=== PATIENT | female | born 1930 | race Caucasian/White ===

== ENCOUNTER → 2016-11-05 | Outpatient (CLI) | payer MEDICARE, BC ==
[~2016-11-05] MED LIST: ALPR0.5T3 PO; CARD120C4 PO; CARV12.52 PO; COUM5TAB PO; PROZ40CA PO
[2016-11-05 09:48] LABS: AUTOMATED NEUTROPHIL # 3.7 TH/MM3 (1.8-7.7); BASOPHIL % 0.7 % (0.0-2.0); EOSINOPHIL # 0.1 TH/MM3 (0-0.4); HEMATOCRIT 40.2 % (35.0-46.0); HEMO FLAGS DIFF FINAL; LYMPH % 14.5 % (9.0-44.0); LYMPHOCYTE # 0.7 TH/MM3 (1.0-4.8); MEAN CELL VOLUME 91.4 FL (80.0-100.0); MEAN CORPUSCULAR HEMOGLOBIN 31.3 PG (27.0-34.0); MEAN CORPUSCULAR HGB CONC 34.2 % (32.0-36.0); MONO % 10.5 % (0.0-8.0); NEUT % 72.3 % (16.0-70.0); PLATELET COUNT 161 TH/MM3 (150-450); RED BLOOD COUNT 4.39 MIL/MM3 (4.00-5.30); RED CELL DISTRIBUTION WIDTH 13.6 % (11.6-17.2); WHITE BLOOD COUNT 5.1 TH/MM3 (4.0-11.0)
[2016-11-05 09:56] LABS: BACTERIA, URINE RARE /hpf; BLOOD, URINE TRACE (NEG); GLUCOSE,URINE NEG (NEG); KETONE, URINE NEG (NEG); MUCUS URINE FEW /lpf (OCC); NITRITE,URINE NEG (NEG); PH, URINE 5.5 (5.0-8.5); SQUAMOUS EPITHELIAL CELL URINE 4 /hpf (0-5); URINE COLOR YELLOW (YELLW/STRAW)
[2016-11-05 10:23] LABS: ALKALINE PHOSPHATASE 74 U/L (45-117); ALT (GPT) 16 U/L (10-53); ANION GAP 8 MEQ/L (5-15); AST (GOT) 12 U/L (15-37); BICARBONATE 27.4 MEQ/L (21.0-32.0); BLOOD UREA NITROGEN 14 MG/DL (7-18); CHLORIDE 106 MEQ/L (98-107); GLOMERULAR FILTRATION RATE 63 ML/MIN (>89); GLUCOSE,FASTING 97 MG/DL (74-99); HDL CHOLESTEROL 59.8 MG/DL (40.0-60.0); LDL CHOLESTEROL 142 MG/DL (0-99); POTASSIUM 4.2 MEQ/L (3.5-5.1); SODIUM (NA) 141 MEQ/L (136-145); THYROXINE (T4) 10.8 MCG/DL (4.8-13.9); TOTAL BILIRUBIN ADULT 0.5 MG/DL (0.2-1.0)
== END ==
LOC: PLAB 07:41
PROVIDERS: ATTEND Internal Medicine Interventional Cardiology
DX: I25.10 Atherosclerotic heart disease of native coronary artery without angina pectoris (principal); I48.2 Chronic atrial fibrillation; R06.02 Shortness of breath; R00.2 Palpitations; R42 Dizziness and giddiness; E78.00 Pure hypercholesterolemia, unspecified; I12.9 Hypertensive chronic kidney disease with stage 1 through stage 4 chronic kidney disease, or unspecified chronic kidney disease; N18.3 Chronic kidney disease, stage 3 (moderate); E78.5 Hyperlipidemia, unspecified
CPT/HCPCS: 36415; 80053; 80061; 81001; 82306; 83970; 84436; 84443; 85025

== ENCOUNTER → 2017-01-24 | Outpatient (CLI) | payer MEDICARE, BC ==
[2017-01-24 13:27] LABS: BASOPHIL # 0.1 TH/MM3 (0-0.2); BASOPHIL % 1.2 % (0.0-2.0); EOSINOPHIL # 0.2 TH/MM3 (0-0.4); EOSINOPHIL % 4.6 % (0.0-4.0); HEMATOCRIT 44.4 % (35.0-46.0); HEMO FLAGS DIFF FINAL; LYMPH % 19.7 % (9.0-44.0); LYMPHOCYTE # 0.9 TH/MM3 (1.0-4.8); MEAN CELL VOLUME 93.8 FL (80.0-100.0); MEAN CORPUSCULAR HEMOGLOBIN 29.8 PG (27.0-34.0); MEAN CORPUSCULAR HGB CONC 31.8 % (32.0-36.0); MONO % 8.2 % (0.0-8.0); NEUT % 66.3 % (16.0-70.0); PLATELET COUNT 172 TH/MM3 (150-450); RED BLOOD COUNT 4.74 MIL/MM3 (4.00-5.30); RED CELL DISTRIBUTION WIDTH 13.3 % (11.6-17.2); WHITE BLOOD COUNT 4.6 TH/MM3 (4.0-11.0)
[2017-01-24 13:51] LABS: BACTERIA, URINE RARE /hpf; BLOOD, URINE NEG (NEG); GLUCOSE,URINE NEG (NEG); KETONE, URINE NEG (NEG); NITRITE,URINE NEG (NEG); PH, URINE 7.5 (5.0-8.5); SQUAMOUS EPITHELIAL CELL URINE <1 /hpf (0-5); URINE COLOR YELLOW (YELLW/STRAW)
[2017-01-24 13:53] LABS: ANION GAP 6 MEQ/L (5-15); AST (GOT) 19 U/L (15-37); BICARBONATE 29.3 MEQ/L (21.0-32.0); BLOOD UREA NITROGEN 12 MG/DL (7-18); CHLORIDE 106 MEQ/L (98-107); GLOMERULAR FILTRATION RATE 60 ML/MIN (>89); GLUCOSE,FASTING 101 MG/DL (74-99); POTASSIUM 4.5 MEQ/L (3.5-5.1); SODIUM (NA) 141 MEQ/L (136-145)
[2017-01-24 14:02] LABS: ALKALINE PHOSPHATASE 75 U/L (45-117); ALT (GPT) 17 U/L (10-53); FREE T4 1.13 NG/DL (0.76-1.46); HDL CHOLESTEROL 46.8 MG/DL (40.0-60.0); LDL CHOLESTEROL 149 MG/DL (0-99); TOTAL BILIRUBIN ADULT 0.5 MG/DL (0.2-1.0)
== END ==
LOC: PLAB 10:19
PROVIDERS: ATTEND Internal Medicine
DX: E78.5 Hyperlipidemia, unspecified (principal); N18.3 Chronic kidney disease, stage 3 (moderate)
CPT/HCPCS: 36415; 80053; 80061; 81001; 82306; 83970; 84439; 84443; 85025

== ENCOUNTER 2017-02-21 13:54 | Emergency (ER) | payer MEDICARE, BC ==
[~2017-02-21] VITALS: Ht 170.2 cm; Wt 75.9 kg
[2017-02-21 14:03] VITALS: BP 115/68; PULSE 82; RESP 16; TEMP 98.2; O2SAT 94
[2017-02-21] MEDS ORDERED: GABA400C5 PO (15:01)
[2017-02-21] MEDS ORDERED: XANA1TAB2 PO (15:01)
[2017-02-21] MEDS ORDERED: CHOL100025 CHEW (15:01)
[2017-02-21] MEDS ORDERED: WARF-23 PO (15:01)
[2017-02-21] MEDS ORDERED: CARV25TA PO (15:01)
[2017-02-21] MEDS ORDERED: FLUO20CA12 PO (15:01)
[2017-02-21] MEDS ORDERED: CART120C PO (15:01)
[2017-02-21] MEDS ORDERED: TRAM50TA PO (15:08)
--- NOTE | 2017-02-21 15:14 | PD ---
HPI Chief Complaint: Pain: Acute or Chronic Time Seen by Provider: 14:40 Travel History International Travel<30 days: No Contact w/Intl Traveler<30days: No Traveled to known affect area: No History of Present Illness HPI The patient was seen and examined in the presence of the nurse. This patient complains of left knee pain. She's had left knee pain for 2 full years. She follows with orthopedist. She was at the orthopedist a week ago she reports. She's had imaging. She says that she has a torn meniscus. She has tried some physical therapy. She says it doesn't help. She has no new or acute injury. Denies fever. She went to the orthopedist today because of her continued and annoying pain. Her orthopedist was not there so the office staff told her to come to the emergency department instead. Severity is moderate. No alleviating factors PFSH Past Medical History Hx Anticoagulant Therapy: Yes (coumadin) Arthritis: No Asthma: No Anxiety: Yes Depression: Yes Heart Rhythm Problems: Yes (A FIB) Cancer: No Cardiac Catheterization: Yes Cardiovascular Problems: No High Cholesterol: Yes Chemotherapy: No Chest Pain: No Congestive Heart Failure: No COPD: No Cerebrovascular Accident: Yes Coronary Artery Disease: Yes Diabetes: No Diminished Hearing: No Deep Vein Thrombosis: Yes Endocrine: No GERD: No Genitourinary: No Hepatitis: No Hiatal Hernia: No Hypertension: Yes Immune Disorder: No Kidney Stones: No Musculoskeletal: No Neurologic: No Psychiatric: No Reproductive: No Respiratory: No Migraines: Yes Radiation Therapy: No Renal Failure: No Seizures: No Sickle Cell Disease: No Sleep Apnea: No Thyroid Disease: Yes (NODULES ON THYROID) Ulcer: No Tetanus Vaccination: < 5 Years Influenza Vaccination: No Menopausal: Yes Past Surgical History Abdominal Surgery: No AICD: No Appendectomy: Yes Arteriovenous Shunt: No Cardiac Surgery: Yes (S TENTS IN CHEST AND ONE IN RT LEG , CAROTID STENT ) Coronary Stent: Yes Ear Surgery: No Endocrine Surgery: No Eye Surgery: Yes (CATARACT SURGERY) Genitourinary Surgery: No Gynecologic Surgery: Yes (REMOVERD CYCT FROM RT BREAST) Insulin Pump: No Joint Replacement: No Oral Surgery: No Pacemaker: Yes (STENTS) Thoracic Surgery: No Tonsillectomy: Yes Other Surgery: Yes (RT FEMORAL STENT) Social History Alcohol Use: No Tobacco Use: No Substance Use: No Allergies-Medications (Allergen,Severity, Reaction): Coded Allergies: Terramycin (Verified Allergy, Severe, SWELLING/HIVES, 02/21/17) Reported Meds & Prescriptions Reported Meds & Active Scripts Active Reported Warfarin 5 Mg Tab 5 Mg PO DAILY Vitamin D3 (Cholecalciferol) 1,000 Unit Chew 1,000 Units CHEW DAILY Cartia Xt (Diltiazem ER 24 HR) 120 Mg Caper 120 Mg PO DAILY Carvedilol 25 Mg Tab 25 Mg PO BID Fluoxetine (Fluoxetine HCl) 20 Mg Capsule 20 Mg PO BID Gabapentin 400 Mg Cap 400 Cap PO BID Xanax (Alprazolam) 1 Mg Tab 1 Mg PO Q8H PRN Review of Systems General / Constitutional: No: Fever HENT: No: Headaches Cardiovascular: No: Chest Pain or Discomfort Respiratory: No: Cough Gastrointestinal: No: Vomiting Genitourinary: No: Frequency Physical Exam Narrative GENERAL: Well-nourished, well-developed patient. SKIN: Focused skin assessment warm/dry. HEAD: Normocephalic. EYES: No scleral icterus. No injection or drainage. NECK: Supple, trachea midline. No JVD or lymphadenopathy. CARDIOVASCULAR: Irregularly irregular rhythm without murmurs, gallops, or rubs. RESPIRATORY: Breath sounds equal bilaterally. No accessory muscle use. GASTROINTESTINAL: Abdomen soft, non-tender, nondistended. MUSCULOSKELETAL: No cyanosis, or edema. No tenderness to the left knee. No obvious effusion or erythema or warmth. She has pain with flexion. BACK: Nontender without obvious deformity. No CVA tenderness. Data Data Last Documented VS Vital Signs Date Time Temp Pulse Resp B/P Pulse Ox O2 Delivery O2 Flow Rate FiO2 02/21/17 14:03 98.2 82 16 115/68 94 MDM Medical Decision Making Medical Screen Exam Complete: Yes Emergency Medical Condition: Yes Medical Record Reviewed: Yes Differential Diagnosis Meniscus injury, cartilage, soft tissue contusion, hemarthrosis Narrative Course I have reviewed the patient's electronic medical record. My clinical suspicion for hemarthrosis is very low. She does list Coumadin as a medication for chronic A. fib but she's had this chronic knee pain for 2 full years. I do not recommend reversal or arthrocentesis at this time I wrote her some tramadol to use as needed for pain relief. She is to contact her physician for follow-up She has a walker at home and I've advised her to use it Diagnosis Primary Impression: Chronic pain of left knee Additional Impression: Permanent atrial fibrillation Additional Instructions: The patient was warned about potential sedation for the medications they will receive on prescription. The patient was advised to follow up with their physician and return if they worsen. Med/Other Pt SpecificInfo: Prescription(s) given Scripts Tramadol 50 Mg Tab50 Mg PO Q6H PRN (PAIN) #20 TAB Ref 0 Prov:Marco Antonio Staley MD 02/21/17 Disposition: 01 DISCHARGE HOME Condition: Stable Marco Antonio Staley MD Feb 21, 2017 15:14
== END 2017-02-21 15:32 | disposition home or self-care (01) ==
LOC: PHEFT 13:54
DX: M25.562 Pain in left knee (principal); G89.29 Other chronic pain; I48.2 Chronic atrial fibrillation; I10 Essential (primary) hypertension; E07.9 Disorder of thyroid, unspecified; E78.00 Pure hypercholesterolemia, unspecified; Z79.01 Long term (current) use of anticoagulants; Z86.59 Personal history of other mental and behavioral disorders; Z86.79 Personal history of other diseases of the circulatory system; Z86.718 Personal history of other venous thrombosis and embolism; Z86.69 Personal history of other diseases of the nervous system and sense organs; Z87.39 Personal history of other diseases of the musculoskeletal system and connective tissue
CPT/HCPCS: 99283

== ENCOUNTER 2017-06-13 10:55 | Inpatient (IN) | payer MEDICARE, BC ==
[~2017-06-13] VITALS: Ht 170.2 cm; Wt 85.3 kg
[~2017-06-13 10:55] MED LIST changes: -ALPR0.5T3 PO; -CARD120C4 PO; +CART120C PO; -CARV12.52 PO; +CARV25TA PO; +CHOL100025 PO; -COUM5TAB PO; +FLUO20CA12 PO; +GABA400C5 PO; -PROZ40CA PO; +TRAM50TA PO; +WARF-23 PO; +XANA1TAB2 PO
[2017-06-13 11:20] VITALS: BP 140/75; PULSE 93; RESP 30; TEMP 98.7; O2SAT 90
[2017-06-13] MEDS ORDERED: SODIUM CHLORIDE 0.9% FLUSH 5 ML FLUSH IV FLUSH PRN (11:30)
[2017-06-13] MEDS ORDERED: SODIUM CHLORIDE 0.9% FLUSH 10 ML FLUSH IVF PRN (11:30)
[2017-06-13] MEDS ORDERED: DILTIAZEM HCL 25 MG/5 ML VIAL IV PUSH ONE (11:30)
[2017-06-13] MEDS ORDERED: WARF-20 PO (11:39)
[2017-06-13] MEDS ORDERED: GABA300C5 PO (11:39)
[2017-06-13 11:59] LABS: AUTOMATED NEUTROPHIL # 6.2 TH/MM3 (1.8-7.7); BASOPHIL % 0.3 % (0.0-2.0); HEMATOCRIT 40.9 % (35.0-46.0); HEMO FLAGS DIFF FINAL; LYMPH % 14.5 % (9.0-44.0); LYMPHOCYTE # 1.2 TH/MM3 (1.0-4.8); MEAN CELL VOLUME 96.9 FL (80.0-100.0); NEUT % 74.2 % (16.0-70.0); PLATELET COUNT 157 TH/MM3 (150-450); RED BLOOD COUNT 4.23 MIL/MM3 (4.00-5.30); RED CELL DISTRIBUTION WIDTH 13.2 % (11.6-17.2); WHITE BLOOD COUNT 8.3 TH/MM3 (4.0-11.0)
[2017-06-13 12:09] LABS: APTT (PATIENT) 26.1 SEC (24.3-30.1); PROTHROMBIN TIME - PATIENT 11.4 SEC (9.8-11.6)
[2017-06-13 12:16] VITALS: BP 152/70; PULSE 105; RESP 30; O2SAT 94
[2017-06-13] MEDS: DILTIAZEM INJ 125 MG in SODIUM CHLORIDE 0.9% INJ 100 ML IV PRN ×2 (12:18→23:00)
--- NOTE | 2017-06-13 12:22 | PD ---
HPI Chief Complaint: Respiratory Distress Time Seen by Provider: 11:29 Travel History International Travel<30 days: No Contact w/Intl Traveler<30days: No Traveled to known affect area: No History of Present Illness HPI Diagnoses in 86-year-old female with history of atrial fibrillation, COPD, CHF, hypertension, and presents here with complaints of palpitations and shortness of breath. The patient denies any chest pain, chest pressure. She reports the tightness across her chest with the palpitations. There is no productive cough. There is no reported fevers, chills. There is no reported chest pain other than the tightness with shortness of breath. The patient was noted to be in A. fib with RVR when the paramedics arrived. She was administered 20 mg of Cardizem. It brought her heart rate down into the 80s however when she arrived here was back up into the low 100s. PFSH Past Medical History Hx Anticoagulant Therapy: Yes (coumadin) Arthritis: No Asthma: No Anxiety: Yes Depression: Yes Heart Rhythm Problems: Yes (A FIB) Cancer: No Cardiac Catheterization: Yes Cardiovascular Problems: Yes (mi ) High Cholesterol: Yes Chemotherapy: No Chest Pain: No Congestive Heart Failure: No COPD: No Cerebrovascular Accident: Yes Coronary Artery Disease: Yes Diabetes: No Diminished Hearing: No Deep Vein Thrombosis: Yes Endocrine: No GERD: No Genitourinary: No Hepatitis: No Hiatal Hernia: No Hypertension: Yes Immune Disorder: No Kidney Stones: No Musculoskeletal: No Neurologic: No Psychiatric: No Reproductive: No Respiratory: Yes Migraines: Yes Radiation Therapy: No Renal Failure: No Seizures: No Sickle Cell Disease: No Sleep Apnea: No Thyroid Disease: Yes (NODULES ON THYROID) Ulcer: No Menopausal: Yes Past Surgical History Abdominal Surgery: No AICD: No Appendectomy: Yes Arteriovenous Shunt: No Cardiac Surgery: Yes (S TENTS IN CHEST AND ONE IN RT LEG , CAROTID STENT ) Coronary Stent: Yes Ear Surgery: No Endocrine Surgery: No Eye Surgery: Yes (CATARACT SURGERY) Genitourinary Surgery: No Gynecologic Surgery: Yes (REMOVERD CYCT FROM RT BREAST) Insulin Pump: No Joint Replacement: No Oral Surgery: No Pacemaker: Yes (STENTS) Thoracic Surgery: No Tonsillectomy: Yes Other Surgery: Yes (RT FEMORAL STENT) Social History Alcohol Use: No Tobacco Use: No Substance Use: No Allergies-Medications (Allergen,Severity, Reaction): Coded Allergies: oxytetracycline (Unverified Allergy, Severe, SWELLING/HIVES, 06/13/17) Reported Meds & Prescriptions Reported Meds & Active Scripts Active Reported Warfarin 4 Mg Tab 4 Mg PO EVERY OTHER DAY Take 1 tablet (4mg) every other day alternating with 5mg Gabapentin 300 Mg Cap 300 Mg PO BID Warfarin 5 Mg Tab 5 Mg PO EVERY OTHER DAY Take 1 tablet (5mg) every other day alternating with 4mg Vitamin D3 (Cholecalciferol) 1,000 Unit Chew 1,000 Units PO DAILY Cartia Xt (Diltiazem ER 24 HR) 120 Mg Caper 120 Mg PO DAILY Carvedilol 25 Mg Tab 25 Mg PO BID Fluoxetine (Fluoxetine HCl) 20 Mg Capsule 20 Mg PO BID Xanax (Alprazolam) 1 Mg Tab 1 Mg PO Q8H PRN Review of Systems Except as stated in HPI: all other systems reviewed are Neg General / Constitutional: No: Fever, Chills HENT: No: Headaches, Lightheadedness Cardiovascular: Positive: Chest Pain or Discomfort (shortness of breath), No: Palpitations Respiratory: Positive: Shortness of Breath, No: Cough Gastrointestinal: No: Nausea, Vomiting, Abdominal Pain Genitourinary: No: Frequency, Dysuria Musculoskeletal: Positive: Weakness (analyzed), No: Pain Neurologic: Positive: Weakness, No: Headache, Change in Mentation Physical Exam Narrative GENERAL: Well-nourished, well-developed patient in mild to moderate respiratory discomfort. SKIN: Focused skin assessment warm/dry. HEAD: Normocephalic/atraumatic. EYES: No scleral icterus. No injection or drainage. NECK: Supple, trachea midline. No JVD or lymphadenopathy. CARDIOVASCULAR: Irregularly irregular with a rate of 1:15. RESPIRATORY: Coarse breath sounds in the lower lung alegria bilaterally. No Rales. GASTROINTESTINAL: Abdomen soft, non-tender, nondistended. MUSCULOSKELETAL: No cyanosis, or edema. NEUROLOGICAL: Awake and alert. Cranial nerves II through XII intact. Motor grossly within normal limits. Five out of 5 muscle strength in all muscle groups. Normal speech. Data Data Last Documented VS Vital Signs Date Time Temp Pulse Resp B/P (MAP) Pulse Ox O2 Delivery O2 Flow Rate FiO2 06/13/17 14:08 94 176/77 06/13/17 12:16 30 94 Nasal Cannula 3.00 06/13/17 11:20 98.7 Orders Orders Ecg Monitoring (06/13/17 11:29) Blood Pressure (06/13/17 11:29) Iv Access Insert/Monitor (06/13/17 11:29) Oximetry (06/13/17 11:29) Vital Signs (06/13/17 11:29) Diltiazem Inj (Cardizem Inj) (06/13/17 11:30) Diltiazem Inj (Cardizem Inj) (06/13/17 11:30) Sodium Chloride 0.9% Flush (Ns Flush) (06/13/17 11:30) Electrocardiogram (06/13/17 11:29) Basic Metabolic Panel (Bmp) (06/13/17 11:29) Ckmb (Isoenzyme) Profile (06/13/17 11:29) Complete Blood Count With Diff (06/13/17 11:29) Magnesium (Mg) (06/13/17 11:29) Prothrombin Time / Inr (Pt) (06/13/17 11:29) Act Partial Throm Time (Ptt) (06/13/17 11:29) Troponin I (06/13/17 11:29) Chest, Single Ap (06/13/17 11:29) Oxygen Administration (06/13/17 11:29) Sodium Chloride 0.9% Flush (Ns Flush) (06/13/17 11:30) Furosemide Inj (Lasix Inj) (06/13/17 14:30) Labs Laboratory Tests Test 06/13/17 11:45 White Blood Count 8.3 TH/MM3 Red Blood Count 4.23 MIL/MM3 Hemoglobin 13.5 GM/DL Hematocrit 40.9 % Mean Corpuscular Volume 96.9 FL Mean Corpuscular Hemoglobin 32.0 PG Mean Corpuscular Hemoglobin Concent 33.0 % Red Cell Distribution Width 13.2 % Platelet Count 157 TH/MM3 Mean Platelet Volume 8.5 FL Neutrophils (%) (Auto) 74.2 % Lymphocytes (%) (Auto) 14.5 % Monocytes (%) (Auto) 11.0 % Eosinophils (%) (Auto) 0.0 % Basophils (%) (Auto) 0.3 % Neutrophils # (Auto) 6.2 TH/MM3 Lymphocytes # (Auto) 1.2 TH/MM3 Monocytes # (Auto) 0.9 TH/MM3 Eosinophils # (Auto) 0.0 TH/MM3 Basophils # (Auto) 0.0 TH/MM3 CBC Comment DIFF FINAL Differential Comment Prothrombin Time 11.4 SEC Prothromb Time International Ratio 1.0 RATIO Activated Partial Thromboplast Time 26.1 SEC Blood Urea Nitrogen 13 MG/DL Creatinine 0.86 MG/DL Random Glucose 116 MG/DL Calcium Level 8.6 MG/DL Magnesium Level 1.9 MG/DL Sodium Level 136 MEQ/L Potassium Level 4.1 MEQ/L Chloride Level 103 MEQ/L Carbon Dioxide Level 27.5 MEQ/L Anion Gap 6 MEQ/L Estimat Glomerular Filtration Rate 62 ML/MIN Total Creatine Kinase 51 U/L Troponin I 0.03 NG/ML MDM Medical Decision Making Medical Screen Exam Complete: Yes Emergency Medical Condition: Yes Differential Diagnosis CHF versus A. fib with RVR versus ACS Narrative Course 86-year-old lady with history of atrial fibrillation, and presents here with the complaint of shortness of breath and palpitations. When [facility] arrived, they found her to be in rapid A. fib and administered 20 mg of diltiazem. Initially her heart rate dropped into the 80s however increase back up into the low 100s. She is given another bolus of diltiazem and placed on a drip of 5 mg per hour. She also noted to be in mild congestive heart failure. STEMI given 20 mg of Lasix. There is a call out to the hospitalist for admission. Diagnosis Primary Impression: Atrial fibrillation with RVR Additional Impressions: Congestive heart failure Dyspnea Admitting Information Admitting Physician Requests: Admit Piotr Nguyễn MD Jun 13, 2017 12:22
[2017-06-13 12:25] LABS: BICARBONATE 27.5 MEQ/L (21.0-32.0); MAGNESIUM 1.9 MG/DL (1.5-2.5); POTASSIUM 4.1 MEQ/L (3.5-5.1)
--- NOTE | 2017-06-13 12:33 | RADRPT ---
EXAM DATE/TIME: 06/13/2017 11:58 [facility] COMPARISON: No previous studies available for comparison. INDICATIONS : Chest pain. Shortness of breath. MEDICAL HISTORY : None. SURGICAL HISTORY : None. ENCOUNTER: Initial ACUITY: 1 day PAIN SCORE: 2/10 LOCATION: Bilateral chest FINDINGS: A single view of the chest demonstrates mild pulmonary vascular congestion. Dense atherosclerotic dis ease.. The cardiomediastinal contours are unremarkable. Osseous structures are intact. CONCLUSION: Mild pulmonary vasculature congestion possible early fluid overload Mahendra Hill MD on June 13, 2017 at 12:31 Board Certified Radiologist. This report was verified electronically.
[2017-06-13] MEDS ORDERED: FUROSEMIDE 20 MG/2 ML VIAL IV PUSH ONE (14:30)
--- NOTE | 2017-06-13 15:09 | HHI.HP ---
HPI Service Family Medicine Primary Care Physician Eboni Wilcox MD Admission Diagnosis afib with rvr, chf. Diagnoses: International Travel<30 Days: No Contact w/Intl Traveler<30days: No Known Affected Area: No History of Present Illness Patient is a 86 yo F with PMHx of Edgar. fib (on warfarin), HTN, CVA, stent placements was brought to the ED by EMS with complaints of generalized weakness , SOB and chest tightness. Patient stated these sxs started yesterday but have worsened today. Patient reports that she feels weakness mostly in her legs and arm. She normally ambulates with walker. However, she states the weakness today was so severe that she was not able to sustain her weight and had a controlled fall. She then called out to her son who lives with her and he called 911. Denies LOC, N/V, fever or chills. Endorses CP, (cough for the past few days), scratchy throat. Patient is AAOx3 (knows she is in hospital ER but can not recall which hospital). Of note pt follows with supervisor wound Dr. Patel. (Rupali Coulter MD, R1) Review of Systems Cardiovascular: COMPLAINS OF: Chest pain, DENIES: Syncope Gastrointestinal: DENIES: Nausea, Vomiting Genitourinary: COMPLAINS OF: Urinary frequency (chronic), Urinary incontinence (wears diapers) Other per HPI (Rupali oCulter MD, R1) Past Family Social History Past Medical History Stroke, 3 yrs ago ASophia dill (on warfarin) HTN urinary incontinence Left knee fracture x3 Left meniscal tear panic attacks, last panic attack 10 yrs ago Past Surgical History Right carotid endarterectomy, 2 yrs ago stent placements x2 (5 & 10 yrs ago) (Rupali Coulter MD, R1) Allergies: Coded Allergies: oxytetracycline (Unverified Allergy, Severe, SWELLING/HIVES, 06/13/17) Family History Father- heart disease Mother- stroke younger sister- dementia older sister- Alzheimer Social History Patient lives with son ambulates with walker Denies smoking, alcohol or illicit drug use (Rupali Coulter MD, R1) Physical Exam Vital Signs Vital Signs Date Time Temp Pulse Resp B/P (MAP) Pulse Ox O2 Delivery O2 Flow Rate FiO2 06/13/17 15:05 120 179/97 06/13/17 14:08 94 176/77 06/13/17 13:54 120 177/89 06/13/17 13:16 94 144/83 06/13/17 12:45 95 168/79 06/13/17 12:18 107 152/70 06/13/17 12:16 105 30 152/70 (97) 94 Nasal Cannula 3.00 06/13/17 11:35 90 Nasal Cannula 3.00 06/13/17 11:35 Nasal Cannula 3.00 06/13/17 11:22 114 37 91 Nasal Cannula 3.00 06/13/17 11:20 98.7 93 30 140/75 (96) 90 Physical Exam GENERAL: This is a well-nourished, well-developed patient, in no apparent distress. SKIN: No rashes, ecchymoses or lesions. Cool and dry. HEAD: Atraumatic. Normocephalic. No temporal or scalp tenderness. EYES: Pupils equal round and reactive. Extraocular motions intact. No scleral icterus. No injection or drainage. ENT: Nose without bleeding, purulent drainage or septal hematoma. Throat without erythema, tonsillar hypertrophy or exudate. Uvula midline. Airway patent. NECK: Trachea midline. No JVD or lymphadenopathy. Supple, nontender, no meningeal signs. CARDIOVASCULAR: Tachycardic, murmurs, No gallops, or rubs. RESPIRATORY: Crackles BL at bases. GASTROINTESTINAL: Abdomen soft, non-tender, nondistended. No hepato-splenomegaly , or palpable masses. No guarding. MUSCULOSKELETAL: Extremities without clubbing, cyanosis, or edema. No joint tenderness, effusion, or edema noted. No calf tenderness. Negative Homans sign bilaterally. NEUROLOGICAL: Awake and alert. Cranial nerves II through XII intact. Motor and sensory grossly within normal limits. Five out of 5 muscle strength in all muscle groups. Normal speech. Laboratory Laboratory Tests Test 06/13/17 11:45 White Blood Count 8.3 Red Blood Count 4.23 Hemoglobin 13.5 Hematocrit 40.9 Mean Corpuscular Volume 96.9 Mean Corpuscular Hemoglobin 32.0 Mean Corpuscular Hemoglobin Concent 33.0 Red Cell Distribution Width 13.2 Platelet Count 157 Mean Platelet Volume 8.5 Neutrophils (%) (Auto) 74.2 Lymphocytes (%) (Auto) 14.5 Monocytes (%) (Auto) 11.0 Eosinophils (%) (Auto) 0.0 Basophils (%) (Auto) 0.3 Neutrophils # (Auto) 6.2 Lymphocytes # (Auto) 1.2 Monocytes # (Auto) 0.9 Eosinophils # (Auto) 0.0 Basophils # (Auto) 0.0 CBC Comment DIFF FINAL Differential Comment Prothrombin Time 11.4 Prothromb Time International Ratio 1.0 Activated Partial Thromboplast Time 26.1 Blood Urea Nitrogen 13 Creatinine 0.86 Random Glucose 116 Calcium Level 8.6 Magnesium Level 1.9 Sodium Level 136 Potassium Level 4.1 Chloride Level 103 Carbon Dioxide Level 27.5 Anion Gap 6 Estimat Glomerular Filtration Rate 62 Total Creatine Kinase 51 Troponin I 0.03 (Rupali Coulter MD, R1) Result Diagram: 06/13/17 1145 06/13/17 1145 Imaging Last Impressions Chest X-Ray 06/13/17 1129 Signed Impressions: Service Date/Time: Tuesday, June 13, 2017 11:58 - CONCLUSION: Mild pulmonary vasculature congestion possible early fluid overload Mahendra Hill MD (Rupali Coulter MD, R1) Caprini VTE Risk Assessment Caprini VTE Risk Assessment: Mod/High Risk (score >= 2) Caprini Risk Assessment Model Point Value = 1 Point Value = 2 Point Value = 3 Point Value = 5 Age 41-60 Minor surgery BMI > 25 kg/m2 Swollen legs Varicose veins or History of unexplained or recurrent spontaneous Oral contraceptives or hormone replacement Sepsis (< 1 month) Serious lung disease, including pneumonia (< 1 month) Abnormal pulmonary function Acute myocardial infarction Congestive heart failure (< 1 month) History of inflammatory bowel disease Medical patient at bed rest Age 61-74 Arthroscopic surgery Major open surgery (> 45 min) Laparoscopic surgery (> 45 min) Malignancy Confined to bed (> 72 hours) Immobilizing plaster cast Central venous access Age >= 75 History of VTE Family history of VTE Factor V Leiden Prothrombin [id number] Lupus anticoagulant Anticardiolipin antibodies Elevated serum homocysteine Heparin-induced thrombocytopenia Other congenital or acquired thrombophilia Stroke (< 1 month) Elective arthroplasty Hip, pelvis, or leg fracture Acute spinal cord injury (< 1 month) Prophylaxis Regimen Total Risk Factor Score Risk Level Prophylaxis Regimen 0-1 Low Early ambulation 2 Moderate Order ONE of the following: *Sequential Compression Device (SCD) *Heparin 5000 units SQ BID 3-4 Higher Order ONE of the following medications: *Heparin 5000 units SQ TID *Enoxaparin/Lovenox 40 mg SQ daily (WT < 150 kg, CrCl > 30 mL/min) *Enoxaparin/Lovenox 30 mg SQ daily (WT < 150 kg, CrCl > 10-29 mL/min) *Enoxaparin/Lovenox 30 mg SQ BID (WT < 150 kg, CrCl > 30 mL/min) AND/OR *Sequential Compression Device (SCD) 5 or more Highest Order ONE of the following medications: *Heparin 5000 units SQ TID (Preferred with Epidurals) *Enoxaparin/Lovenox 40 mg SQ daily (WT < 150 kg, CrCl > 30 mL/min) *Enoxaparin/Lovenox 30 mg SQ daily (WT < 150 kg, CrCl > 10-29 mL/min) *Enoxaparin/Lovenox 30 mg SQ BID (WT < 150 kg, CrCl > 30 mL/min) AND *Sequential Compression Device (SCD) (Rupali Coulter MD, R1) Assessment and Plan Assessment and Plan Patient is a 86 yo F with PMHx of A. fib (on warfarin), HTN, CVA, stent placements admitted for acs r/o, management of a fib with rvr, possible CHF and UTI. Tachycardic and hypertensive. Afebrile. WBC WNL Code Status Full code Discussed Condition With sdw Dr. Lawler wdw Dr. Key (Rupali Coulter MD, R1) Attending Attestation THIS CASE WAS DISCUSSED WITH THE RESIDENT PHYSICIAN. I HAVE REVIEWED THE RECORD AND AGREE WITH THE ABOVE NOTE AND PLAN OF CARE WAS DISCUSSED. I HAVE AUTHORIZED THE ORDER FOR PLACEMENT IN OUT-PATIENT OBSERVATION STATUS. (Shreya Key MD) Problem List: (1) Atrial fibrillation with RVR ICD Codes: I48.91 - Unspecified atrial fibrillation Status: Acute Plan: -EKG: A fib with RVR -INR- 1 -diltiazem drip -c/w warfarin and coreg -restart diltiazem po tomorrow am (2) SOB (shortness of breath) ICD Codes: R06.02 - SOB (shortness of breath) Status: Acute Plan: -CXR: mild pulmonary vascular congestion -c/w lasix -trending cardiac enzymes -bnp- 237 - f/u repeat bnp -f/u echo (3) Weakness generalized ICD Codes: R53.1 - Weakness generalized Status: Acute Plan: -likely due to cardiac disease a fib vs chf - PT -treat cardiac problems as above (4) UTI (urinary tract infection) ICD Codes: N39.0 - Urinary tract infection, site not specified Status: Acute Plan: Patient reported chronic sxs of urinary frequency. Afebrile. WBC WNL - positive UA - f/u Ucx -Pt started on rocephin (5) Nutrition, metabolism, and development symptoms ICD Codes: R63.8 - Other symptoms and signs concerning food and fluid intake Plan: Fluids: not indicated at this time Electrolytes: WNL, replete as needed Nutrition: regular diet DVT ppx: lovenox (Rupali Coulter MD, R1) Rupali Coulter MD, R1 Jun 13, 2017 15:09 Shreya Key MD Jun 14, 2017 07:56
[2017-06-13 15:42] VITALS: O2SAT 90
[2017-06-13] MEDS ORDERED: SODIUM CHLORIDE 0.9% FLUSH 10 ML FLUSH IV FLUSH PRN (15:45)
[2017-06-13 16:12] VITALS: BP 164/72; PULSE 89; RESP 20; TEMP 98; O2SAT 91
[2017-06-13 16:28] LABS: BACTERIA, URINE RARE /hpf; BLOOD, URINE TRACE (NEG); COMMENT (UR) CULTURE INDICATED; CULTURE IF INDICATED CULTURE INDICATED; GLUCOSE,URINE NEG (NEG); KETONE, URINE NEG (NEG); NITRITE,URINE POS (NEG); PH, URINE 7.5 (5.0-8.5); URINE COLOR YELLOW (YELLW/STRAW)
[2017-06-13 20:00] VITALS: BP 142/63; PULSE 100; PULSE 96; PULSE 98; RESP 17; TEMP 98.2; O2SAT 96
[2017-06-13] MEDS: GABAPENTIN 300 MG CAP PO SCH (21:03)
[2017-06-13] MEDS: FLUoxetine HCL 20 MG CAP PO SCH (21:03)
[2017-06-13] MEDS: SODIUM CHLORIDE 0.9% FLUSH 10 ML FLUSH IV FLUSH SCH (21:04)
[2017-06-13] MEDS: CARVEDILOL 12.5 MG TAB PO SCH (21:04)
[2017-06-13 23:00] VITALS: BP 115/61; PULSE 89; RESP 19; TEMP 98.5; O2SAT 93
[2017-06-14] VITALS (9 sets, daily range): BP systolic 110–146; BP diastolic 55–77; PULSE 76–99; RESP 19–21; TEMP 98.2–99.1; O2SAT 92–95
[2017-06-14 01:59] LABS: BICARBONATE 28.4 MEQ/L (21.0-32.0)
[2017-06-14 03:18] LABS: INTERNATIONAL NORMALIZED RATIO 1.1 RATIO
[2017-06-14] MEDS: cefTRIAXone INJ 2,000 MG in SODIUM CHLORIDE 0.9% INJ 100 ML IV SCH (03:35)
[2017-06-14] MEDS ORDERED: IOHEXOL 350 MG/ML 10 ML VIAL (for RAD DIAG) IVCONTRAST ONE (06:02)
--- NOTE | 2017-06-14 06:15 | RADRPT ---
EXAM DATE/TIME: 06/14/2017 05:53 [place] COMPARISON: CT THORAX W CONTRAST, August 04, 2014, 9:33. CHEST SINGLE AP, June 13, 2017, 11:58. INDICATIONS : Shortness of breath and elevated d-dimer; rule out pulmonary embolus. IV CONTRAST: 74 cc Omnipaque 350 (iohexol) IV RADIATION DOSE: 9.95 CTDIvol (mGy) MEDICAL HISTORY : Cerebrovascular disease. Cardiovascular disease Myocardial infarction.DVT, Gallstones, CHF SURGICAL HISTORY : Appendectomy. Cardiac and carotid stents ENCOUNTER: Initial ACUITY: 1 day PAIN SCALE: 0/10 LOCATION: chest TECHNIQUE: Volumetric scanning of the chest was performed using a pulmonary embolism protocol MIP images were re constructed. Using automated exposure control and adjustment of the mA and/or kV according to patien t size, radiation dose was kept as low as reasonably achievable to obtain optimal diagnostic quality images. DICOM format image data is available electronically for review and comparison. Follow-up recommendations for detected pulmonary nodules are based at a minimum on nodule size and pa tient risk factors according to Fleischner Society Guidelines. FINDINGS: PULMONARY ARTERIES: No filling defects are seen in the pulmonary arteries through the segmental level. LUNGS: There is no consolidation or pneumothorax . No concerning pulmonary nodule is visualized. Streaky op acity and groundglass opacities are present. PLEURAE: There is a new small bilateral pleural effusions. MEDIASTINUM: There is good visualization of the great vessels of the middle mediastinum. No evidence of mediastin al or hilar adenopathy/mass. There is mild to moderate cardiomegaly. Tracheal calcifications are pres ent. There are coronary artery calcifications as well. MUSCULOSKELETAL: Within normal limits for patient age. MISCELLANEOUS: The visualized upper abdominal organs demonstrate no acute abnormality. The thyroid gland remains pro minent and inhomogeneous with punctate calcifications. CONCLUSION: 1. No evidence of pulmonary embolism. 2. Small bilateral pleural effusions with groundglass opacities in areas of streaky opacity. 3. Mild to moderate cardiomegaly. 4. The thyroid gland remains enlarged with inhomogeneity and calcifications. Gutierrez Muniz MD on June 14, 2017 at 6:10 Board Certified Radiologist. This report was verified electronically.
[2017-06-14] MEDS: CARVEDILOL 12.5 MG TAB PO SCH ×2 (08:33→20:01)
[2017-06-14] MEDS: FLUoxetine HCL 20 MG CAP PO SCH ×2 (08:33→20:01)
[2017-06-14] MEDS: CHOLECALCIFEROL (VIT D3) 1000 UNIT TAB PO SCH (08:33)
[2017-06-14] MEDS: GABAPENTIN 300 MG CAP PO SCH ×2 (08:33→20:01)
[2017-06-14] MEDS: SODIUM CHLORIDE 0.9% FLUSH 10 ML FLUSH IV FLUSH SCH ×2 (08:33→20:03)
[2017-06-14] MEDS ORDERED: DILTIAZEM-CD 120 MG CAP ER PO SCH (09:00)
[2017-06-14] MEDS ORDERED: WARFARIN SOD 5 MG TAB PO SCH (09:00)
--- NOTE | 2017-06-14 11:12 | HHI.FPPN ---
Problem Problem List: (1) Atrial fibrillation with RVR (2) SOB (shortness of breath) (3) UTI (urinary tract infection) (4) Weakness generalized (5) Hypertensive cardiovascular disease (6) ASHD (arteriosclerotic heart disease) (7) Chronic pain of left knee (8) Nutrition, metabolism, and development symptoms Subjective Subjective 86 year old woman with h/o Afib had generalized weakness and SOB and and chest tightness was brought to the ED. She was noted to be in Afib with RVR and have UTI. She also has h/o CVA, HTN, Cardiovascular disease and is a patient of Dr. South. Overnight there were no events. This morning the patient reports her chest tightness has resolved. She continues to have some SOB but she think this has improved. She thinks her weakness is about the same. Denies CP or palpitations Denies dysuria, maybe some increased Frequency, denies n/v/d/c or other GI symptoms Please see the resident History and Physical for any further clarification. Past Medical History CVA 2013 A. fib (on warfarin) HTN urinary incontinence Left knee fracture x3 Left meniscal tear panic attacks, last panic attack 10 yrs ago Past Surgical History Right carotid endarterectomy, 2 yrs ago stent placements x2 (5 & 10 yrs ago) Family History Father- heart disease Mother- stroke younger sister- dementia older sister- Alzheimer Social History Patient lives with son ambulates with walker Denies smoking, alcohol or illicit drug use Hospital Objective Objective Last Impressions CT Angiography 06/14/17 0000 Signed Impressions: Service Date/Time: Wednesday, June 14, 2017 05:53 - CONCLUSION: 1. No evidence of pulmonary embolism. 2. Small bilateral pleural effusions with groundglass opacities in areas of streaky opacity. 3. Mild to moderate cardiomegaly. 4. The thyroid gland remains enlarged with inhomogeneity and calcifications. Gutierrez Muniz MD Chest X-Ray 06/13/17 1129 Signed Impressions: Service Date/Time: Tuesday, June 13, 2017 11:58 - CONCLUSION: Mild pulmonary vasculature congestion possible early fluid overload Mahendra Hill MD Laboratory Tests - Abnormals Test 06/13/17 11:45 06/13/17 16:00 06/13/17 17:45 06/14/17 01:17 Neutrophils (%) (Auto) 74.2 % Monocytes (%) (Auto) 11.0 % Random Glucose 116 MG/DL Estimat Glomerular Filtration Rate 62 ML/MIN 60 ML/MIN Urine Turbidity HAZY Urine Protein 30 mg/dL Urine Occult Blood TRACE Urine Nitrite POS Urine Leukocyte Esterase LARGE Urine RBC 26 /hpf Urine WBC 99 /hpf Urine WBC Clumps MANY Urine Bacteria RARE /hpf B-Type Natriuretic Peptide 237 PG/ML Troponin I 0.08 NG/ML 0.11 NG/ML Calcium Level 8.1 MG/DL Test 06/14/17 02:48 Prothrombin Time 12.0 SEC D-Dimer Quantitative (PE/DVT) 0.90 MG/L FEU Vital Signs 06/13/17 06/13/17 06/13/17 06/13/17 11:20 11:22 11:35 11:35 Temp 98.7 Pulse 93 114 Resp 30 37 B/P (MAP) 140/75 (96) Pulse Ox 90 91 90 O2 Delivery Nasal Cannula Nasal Cannula Nasal Cannula O2 Flow Rate 3.00 3.00 3.00 06/13/17 06/13/17 06/13/17 06/13/17 12:16 12:18 12:45 13:16 Pulse 105 107 95 94 Resp 30 B/P (MAP) 152/70 (97) 152/70 168/79 144/83 Pulse Ox 94 O2 Delivery Nasal Cannula O2 Flow Rate 3.00 06/13/17 06/13/17 06/13/17 06/13/17 13:54 14:08 15:05 15:42 Pulse 120 94 120 B/P (MAP) 177/89 176/77 179/97 Pulse Ox 90 O2 Delivery Nasal Cannula O2 Flow Rate 3.00 06/13/17 06/13/17 06/13/17 06/13/17 15:42 16:00 16:12 20:00 Temp 98.0 98.2 Pulse 89 98 Resp 20 17 B/P (MAP) (97) 164/72 (102) 142/63 (89) Pulse Ox 91 91 96 O2 Delivery Nasal Cannula Nasal Cannula O2 Flow Rate 4.00 4.00 06/13/17 06/13/17 06/13/17 06/13/17 20:00 21:05 23:00 23:00 Temp 98.5 Pulse 96 89 89 Resp 19 B/P (MAP) 115/61 115/61 (79) Pulse Ox 93 O2 Delivery Nasal Cannula O2 Flow Rate 4.00 06/14/17 06/14/17 06/14/17 06/14/17 00:00 00:00 04:00 04:00 Pulse 84 76 O2 Delivery Nasal Cannula Nasal Cannula O2 Flow Rate 4.00 4.00 06/14/17 06/14/17 06/14/17 06/14/17 04:00 08:00 09:17 10:35 Temp 98.2 98.3 Pulse 85 99 90 Resp 20 19 B/P (MAP) 113/55 (74) 110/59 (76) Pulse Ox 95 92 O2 Delivery Nasal Cannula O2 Flow Rate 4.00 Physical exam Gen: normally nourished, in NAD. EYES: conjunctiva normal, PERRLA, ENT: Mouth and pharynx normal. LUNGS: bilateral crackles at the bases, moving air CARDIOVASCULAR: irr, irr, no JVD, no peripheral edema GI/ABD: soft without masses, without organomegaly, good bowel sounds. : no CVA tenderness NEURO: No focal deficits. able to ambulate with a walker SKIN: color normal, no rashes noted. HEME/LYMPH: no bruising, petechia or significant adenopathy MUSC: back is normal in appearance. Extremities are normal in appearance. PSYCH/MENTAL STATUS: Alert and oriented to person and knows she is in the hospital but not sure of the name Assessment Assessment: (1) Atrial fibrillation with RVR Plan: Troponin has continued to trend up to 0.11 but patient is not having CP or clinically looking like ACS. Will repeat later today to see if this has peaked or not. Her rate is controlled over the last several hours so we will stop her Cardizem drip and transition her to PO Cardizem and continue her Coreg. She was on Coumadin as an outpatient and this has been restarted but unsure if she was taking this correctly as her INR was 1.0 on admission. Consult her biblical languages professor for assistance with her cardiovascular issues and also to determine if a different anticoagulant might be more appropriate. Check Echo to assess her heart function (2) SOB (shortness of breath) Plan: At this time this could be multifactorial. Consider just volume overload due to decompensation from the Afib with RVR. Will check echo and continue some gentle diuresis today. Will restrict her fluids until we see the echo results (3) UTI (urinary tract infection) Plan: She is clinically not symptomatic. Culture is pending. Continue the Rocephin for now (4) ASHD (arteriosclerotic heart disease) Plan: Continue to follow troponin for now as above (5) Weakness generalized Plan: Likely multifactorial as well -- deconditioning, cardiovascular disease , knee fracture and possibly from UTI. PT consult (6) Hypertensive cardiovascular disease Plan: Stable (7) Chronic pain of left knee Plan: PT assessment Continue to use the walker for ambulation Assessment 86 y/o with chronic Afib with RVR, UTI and symptomatic weakness, SOB, CP that has improved since admission. Continue with the plan as above PLAN PLAN Patient seen and dw the resident team -- Dr. Lawler, Dr. Coulter, Dr. Reymundo Key,Shreya Cabral MD Jun 14, 2017 11:12
[2017-06-14] MEDS ORDERED: FUROSEMIDE 20 MG TAB PO ONE (11:30)
--- NOTE | 2017-06-14 15:07 | EKG ---
Date Performed: 06/13/2017 Time Performed: 20:04:07 PTAGE: 86 years EKG: ATRIAL FIBRILLATION SEPTAL MYOCARDIAL INFARCTION , OF INDETERMINATE AGE ABNORMAL ECG PREVIOUS TRACING : 06/13/2017 15.59 Compared to the previous tracing, rate is now controlled DOCTOR: Geremias Sherwood Interpretating Date/Time 06/14/2017 15:05:44
--- NOTE | 2017-06-14 15:25 | EKG ---
Date Performed: 06/13/2017 Time Performed: 15:59:18 PTAGE: 86 years EKG: ATRIAL FIBRILLATION WITH RAPID VENTRICULAR RESPONSE SEPTAL MYOCARDIAL INFARCTION ABNORMAL E CG PREVIOUS TRACING : 08/03/2014 13.54 Compared to prior tracing no significant change DOCTOR: Geremias Sherwood Interpretating Date/Time 06/14/2017 15:23:37
[2017-06-14] MEDS ORDERED: ENOXAPARIN SODIUM 30 MG/0.3 ML SYRINGE SQ SCH (16:00)
--- NOTE | 2017-06-14 17:01 | MB ---
cc: MEMO ESCALONA MD,SHIVAM PATEL,NEEL DATE OF CONSULTATION: 06/14/17 DATE OF : 1930 REASON FOR CONSULTATION Asked by Dr. Keane to evaluate patient with atrial fibrillation with rapid ventricular rate, chest pain and abnormal troponin levels. The patient's subway train operator is Dr. Patel. HISTORY OF PRESENT ILLNESS Jeanne Grimes is a very pleasant 86-year-old woman with a past medical history significant for chronic atrial fibrillation, hypertension, coronary artery disease and status post CVA three years ago. She reports having progressive generalized weakness over the past several days. Yesterday she had increased weakness and was not able to ambulate. She also noted retrosternal chest pain and shortness of breath prompting her to call 911. MEDICATIONS PRIOR TO ADMISSION 1. Warfarin 4 mg daily. 2. Gabapentin 300 mg daily. 3. Vitamin D. 4. Cartia 120 mg daily. 5. Coreg 25 mg b.i.d. 6. Fluoxetine 20 mg b.i.d. 7. Xanax 1 mg q.8 hours p.r.n. ALLERGIES OXYTETRACYCLINE. PAST MEDICAL HISTORY As above, she has a history of - 1. Chronic atrial fibrillation. 2. Hypertension status post CVA. 3. Panic attacks. 4. Coronary artery disease status post stents. PAST SURGICAL HISTORY 1. History of left knee fracture x3. 2. Left meniscal tear. 3. Status post right carotid endarterectomy. SOCIAL HISTORY She does not smoke or drink alcohol. No illicit drug use. REVIEW OF SYSTEMS As above, a 12-point review of systems reviewed and noted. No recent fevers, chills, cough, no sputum production. No recent gastrointestinal or genitourinary symptoms. She has had progressive generalized weakness and shortness of breath over the past several days. PHYSICAL EXAMINATION VITAL SIGNS: Temperature 98.2, pulse 76, respirations 20, blood pressure 113/55, O2 sat 95% on 4 liters nasal cannula. GENERAL: She is frail appearing, in no acute distress. HEAD, EYES, EARS, NOSE AND THROAT: Anicteric. PERRLA. NECK: Flat JVD. A soft carotid bruit. LUNGS: Lungs with bibasilar crackles. HEART: Irregular rate and rhythm. A 2/6 systolic murmur left lower sternal border. ABDOMEN: Soft, nontender. EXTREMITIES: Without edema. LABORATORY DATA WBC 8.3, hemoglobin 13.5, hematocrit is 40.9, platelet count is 157,000. Sodium 136, potassium 4.1, chloride 103, BUN 13, creatinine 0.86, calcium 8.6. Troponin 0.11, 0.80, 0.03. BNP is 237. INR is 1.0. IMAGING Chest x-ray: No cardiomegaly or congestive heart failure. IMPRESSION 1. Atrial fibrillation with rapid ventricular rate, now better controlled. 2. Chest pain syndrome likely due to demand ischemia. 3. Borderline positive troponins due to demand ischemia, type 2 ACS. 4. She has high-risk CHADS-Vasc score 6 points based on age, history of CVA, hypertension, female gender and a history of vascular disease. 5. Hypertension. 6. Shortness of breath likely due to pulmonary congestion without overt CHF, she has low BNP. 7. Progressive generalized weakness likely due to exercise intolerance/deconditioning in the elderly and UTI. 8. UTI. PLAN 1. Continue Coreg 25 mg b.i.d. 2. Increase Cardizem CD 180 daily. 3. Start Aspirin 81 mg daily. 4. High-dose atorvastatin 40 mg daily. 5. Lisinopril 5 mg daily. 6. Hold warfarin for now. Give Lovenox subcu for both acute coronary syndrome and atrial fibrillation. 7. We will review echocardiogram. Thank you for allowing me to participate in this patient's care. Thank you for this consultation. Dr. Patel will return on Friday. MD JOSE Matston/KEVIN /3:35 PM /4:22 PM
[2017-06-14] MEDS: ATORVASTATIN 40 MG TAB PO SCH (17:30)
[2017-06-14] MEDS: LISINOPRIL 5 MG TAB PO SCH (17:30)
--- NOTE | 2017-06-14 18:19 | EKG ---
Date Performed: 06/13/2017 Time Performed: 11:12:16 PTAGE: 86 years EKG: ATRIAL FIBRILLATION WITH RAPID VENTRICULAR RESPONSE MINIMAL ST DEPRESSION ABNORMAL RHYTHM E CG Compared to the PREVIOUS TRACING from 08/03/14, ST/T wave changes are slightly more prominent DOCTOR: Geremias Sherwood Interpretating Date/Time 06/14/2017 18:18:03
[2017-06-15] VITALS (9 sets, daily range): BP systolic 111–143; BP diastolic 55–68; PULSE 78–99; RESP 19–20; TEMP 98–98.8; O2SAT 93–96
[2017-06-15] MEDS: cefTRIAXone INJ 2,000 MG in SODIUM CHLORIDE 0.9% INJ 100 ML IV SCH (03:32)
[2017-06-15 07:18] LABS: MEAN CORPUSCULAR HGB CONC 33.3 % (32.0-36.0); PLATELET COUNT 123 TH/MM3 (150-450); RED BLOOD COUNT 3.75 MIL/MM3 (4.00-5.30); RED CELL DISTRIBUTION WIDTH 13.3 % (11.6-17.2); REVIEW FLAG FINAL
[2017-06-15 07:23] LABS: INTERNATIONAL NORMALIZED RATIO 1.1 RATIO; PROTHROMBIN TIME - PATIENT 11.8 SEC (9.8-11.6)
[2017-06-15 07:41] LABS: BICARBONATE 25.9 MEQ/L (21.0-32.0); POTASSIUM 3.5 MEQ/L (3.5-5.1)
[2017-06-15] MEDS: FLUoxetine HCL 20 MG CAP PO SCH ×2 (08:53→20:09)
[2017-06-15] MEDS: CARVEDILOL 12.5 MG TAB PO SCH ×2 (08:53→20:09)
[2017-06-15] MEDS: CHOLECALCIFEROL (VIT D3) 1000 UNIT TAB PO SCH (08:53)
[2017-06-15] MEDS: GABAPENTIN 300 MG CAP PO SCH ×2 (08:53→20:09)
[2017-06-15] MEDS: LISINOPRIL 5 MG TAB PO SCH (08:54)
[2017-06-15] MEDS: DILTIAZEM-CD 180 MG CAP ER PO SCH (08:54)
[2017-06-15] MEDS: ATORVASTATIN 40 MG TAB PO SCH (08:54)
[2017-06-15] MEDS: SODIUM CHLORIDE 0.9% FLUSH 10 ML FLUSH IV FLUSH SCH ×2 (08:57→20:09)
[2017-06-15] MEDS ORDERED: WARFARIN SOD 4 MG TAB PO SCH (09:00)
--- NOTE | 2017-06-15 09:16 | HHI.FPPN ---
Subjective Remarks No acute events overnight, this morning notes cough and felt chills overnight. Does not feel very short of breath, just globally weak. CP she will feel intermittently, none at present. No dysuria. (Cesar Lawler MD R2) Objective Vitals Vital Signs Date Time Temp Pulse Resp B/P (MAP) Pulse Ox O2 Delivery O2 Flow Rate FiO2 06/15/17 08:00 98.0 82 19 143/67 (92) 93 06/15/17 07:38 Nasal Cannula 4.00 06/15/17 04:00 Nasal Cannula 4.00 06/15/17 04:00 98.1 99 20 127/60 (82) 96 06/15/17 00:00 98.4 84 20 116/67 (83) 93 06/15/17 00:00 Nasal Cannula 4.00 06/14/17 20:00 Nasal Cannula 4.00 06/14/17 20:00 99.1 97 21 146/77 (100) 93 06/14/17 17:30 93 Nasal Cannula 4.00 06/14/17 16:00 98.3 82 19 142/65 (90) 92 06/14/17 12:00 98.4 89 19 116/61 (79) 93 06/14/17 10:35 90 06/14/17 09:17 Nasal Cannula 4.00 I/O 06/14/17 06/14/17 06/14/17 06/15/17 06/15/17 06/15/17 07:00 15:00 23:00 07:00 15:00 23:00 Intake Total 662 ml 380 ml 350 ml Output Total 520 ml Balance 142 ml 380 ml 350 ml Intake Oral 480 ml 380 ml 250 ml IV Total 182 ml 100 ml Output Urine Total 520 ml # Voids 2 5 2 # Bowel Movements 0 1 (Cesar Lawler MD R2) Result Diagram: 06/15/17 0557 06/15/[address] Angiography 06/14/17 0000 Signed Impressions: Service Date/Time: Friday, June 14, 2017 05:53 - CONCLUSION: 1. No evidence of pulmonary embolism. 2. Small bilateral pleural effusions with groundglass opacities in areas of streaky opacity. 3. Mild to moderate cardiomegaly. 4. The thyroid gland remains enlarged with inhomogeneity and calcifications. Gutierrez Muniz MD Chest X-Ray 06/13/17 1124 Signed Impressions: Service Date/Time: Tuesday, June 13, 2017 11:58 - CONCLUSION: Mild pulmonary vasculature congestion possible early fluid overload Mahendra Hill MD Objective Remarks Gen: WDWN elderly white female sitting up in bed in NAD CV: Normal rate, irregularly irregular rhythm, normal S1/S2, no MRG Lungs: Vesicular breath sounds bilaterally. Mild end expiratory wheezing in lower lung alegria bilaterally, L > R. NC at 4 L. Able to speak comfortably in full sentences. No accessory muscle use. Abd: Soft, NDNT MSK: No edema of BLE Neuro: Awake, alert. Moves all extremities well. Medications and IVs Current Medications Medications (Trade) Dose Ordered Sig/Norma Route Start Time Stop Time Status Last Admin (NS Flush) 2 ml UNSCH PRN IV FLUSH 06/13/17 11:30 (NS Flush) 2 ml UNSCH PRN IVF 06/13/17 11:30 (NS Flush) 2 ml UNSCH PRN IV FLUSH 06/13/17 15:45 (NS Flush) 2 ml BID IV FLUSH 06/13/17 21:00 06/15/17 08:57 (Coreg) 25 mg BID PO 06/13/17 21:00 06/15/17 08:53 (Vitamin D3) 1,000 units DAILY PO 06/14/17 09:00 06/15/17 08:53 (PROzac) 20 mg BID PO 06/13/17 21:00 06/15/17 08:53 (Neurontin) 300 mg BID PO 06/13/17 21:00 06/15/17 08:53 (Coumadin) 4 mg EVERY OTHER DAY PO 06/15/17 09:00 Future Hold (Coumadin) 5 mg EVERY OTHER DAY PO 06/14/17 09:00 Future Hold 06/14/17 08:33 Ceftriaxone Sodium 2000 mg/ Sodium Chloride 100 ml @ 200 mls/hr Q24H IV 06/14/17 03:00 06/15/17 03:32 (Lipitor) 40 mg DAILY PO 06/14/17 15:45 06/15/17 08:54 (Prinivil) 5 mg DAILY PO 06/14/17 16:00 06/15/17 08:54 (Cardizem Cd) 180 mg DAILY PO 06/15/17 09:00 06/15/17 08:54 (Lovenox Inj) 30 mg Q24H SQ 06/14/17 16:00 06/14/17 17:30 (Cesar Lawler MD R2) A/P Assessment and Plan Patient is a 86 yo F with PMHx of A. fib (on warfarin), HTN, CVA, stent placements presenting with: (Cesar Lawler MD R2) Attending Attestation Patient seen and examined. Case reviewed and discussed with the resident team. Agree with plan of care as discussed with me and documented in the resident note. (Shreya Key MD) Problem List: (1) Atrial fibrillation with RVR ICD Codes: I48.91 - Unspecified atrial fibrillation Status: Acute Plan: In AFib with RVR on admission, rate now controlled - Cardiology consulted, appreciate recommendations - Troponin elevation (noted below) likely from demand ischemia due to RVR - Cont Coreg - Increased PO diltiazem ER to 180 mg PO daily - Added lisinopril 5 mg daily - Added atorvastatin 40 mg HS - Lovenox injections daily (30 mg SQ) - Discharge on Xarelto 20 mg daily; stop warfarin - Patient good candidate for Xarelto due to labile INRs in past, subtherapeutic on admission (2) SOB (shortness of breath) ICD Codes: R06.02 - SOB (shortness of breath) Status: Resolved Plan: Symptoms stable CXR: mild pulmonary vascular congestion Troponin trend: Item Value Date Time Troponin I 0.03 NG/ML 06/13/17 1145 Troponin I 0.08 NG/ML H 06/13/17 1745 Troponin I 0.11 NG/ML H 06/14/17 0117 Troponin I 0.08 NG/ML H 06/14/17 1805 BNP 237 on admission, repeat 180s D-dimer elevated to 0.90; CTA negative for PE - Echocardiogram pending, symptoms stable; this can be done as outpatient with Dr. South - Continue oxygen as needed (came in on 2L) (3) Weakness generalized ICD Codes: R53.1 - Weakness generalized Status: Acute Plan: Likely due to cardiac disease and UTI combination - Manage cardiac problems as noted - PT at rehab; CM consulted to arrange placement (4) UTI (urinary tract infection) ICD Codes: N39.0 - Urinary tract infection, site not specified Status: Acute Plan: Patient reported chronic sxs of urinary frequency. Afebrile. WBC WNL Symptoms now resolved UA with WBC clumps suggesting pyelonephritis Urine Cx growing E coli sensitive to Augmentin, Cipro - S/p 2 days Rocephin - Antibiotic coverage can be changed to Ciprofloxacin on discharge; will need 10 -14 days of total treatment Antibiotic History Rocephin 06/14 - present (5) Nutrition, metabolism, and development symptoms ICD Codes: R63.8 - Other symptoms and signs concerning food and fluid intake Plan: Fluids: not indicated at this time Electrolytes: WNL, replete as needed Nutrition: regular diet DVT ppx: lovenox as above Code status: full code Dispo: Can be discharged to rehab today (Cesar Lawler MD R2) Problem Qualifiers (1) UTI (urinary tract infection): Qualified Codes: N10 - Acute pyelonephritis Cesar Lawler MD R2 Jun 15, 2017 09:16 Shreya Key MD Jun 16, 2017 08:23
[2017-06-15] MEDS ORDERED: LISI-519 PO (11:25)
[2017-06-15] MEDS ORDERED: XARE20TA PO (11:25)
[2017-06-15] MEDS ORDERED: CIPR500T2 PO (11:25)
[2017-06-15] MEDS ORDERED: CARD180C5 PO (11:25)
[2017-06-15] MEDS ORDERED: ATOR40TA16 PO (11:25)
--- NOTE | 2017-06-15 11:28 | HHI.DCPOC ---
Discharge Care Plan Diagnosis: (1) Atrial fibrillation with RVR (2) Weakness generalized (3) UTI (urinary tract infection) (4) Chronic pain of left knee Goals to Promote Your Health * To prevent worsening of your condition and complications * To maintain your health at the optimal level Directions to Meet Your Goals Your blood thinning medicine was changed this hospital stay from warfarin to rivaroxaban (Xarelto) STOP taking warfarin START taking rivaroxaban (Xarelto) with your dinner daily Follow up with Dr. South Take your medications as prescribed Follow your dietary instruction Follow activity as directed Keep your appointments as scheduled Take your immunizations and boosters as scheduled If your symptoms worsen call your PCP, if no PCP go to Urgent Care Center or Emergency Room Smoking is Dangerous to Your Health. Avoid second hand smoke Call the 24-hour hour crisis hotline for domestic abuse at Cesar Lawler MD R2 Jun 15, 2017 11:28
--- NOTE | 2017-06-15 11:43 | HHI.DS ---
Discharge Summary Admission Date Jun 13, 2017 at 14:57 Discharge Date: Jun 16, 2017 Admitting Diagnosis afib with rvr (1) Atrial fibrillation with RVR Diagnosis: Principal ICD Codes: I48.91 - Unspecified atrial fibrillation Status: Acute (2) SOB (shortness of breath) Diagnosis: Principal ICD Codes: R06.02 - SOB (shortness of breath) Status: Resolved (3) Weakness generalized Diagnosis: Principal ICD Codes: R53.1 - Weakness generalized Status: Acute (4) UTI (urinary tract infection) Diagnosis: Secondary ICD Codes: N39.0 - Urinary tract infection, site not specified Status: [facility] - Dr. Weber (covering for Dr. South - patient's outpatient engineering director) Brief History Patient is a 86 yo F with PMHx of A. fib (on warfarin), HTN, CVA, stent placements was brought to the ED by EMS with complaints of generalized weakness , SOB and chest tightness. Patient stated these sxs started yesterday but have worsened today. Patient reports that she feels weakness mostly in her legs and arm. She normally ambulates with walker. However, she states the weakness today was so severe that she was not able to sustain her weight and had a controlled fall. She then called out to her son who lives with her and he called 911. Denies LOC, N/V, fever or chills. Endorses CP, (cough for the past few days), scratchy throat. Patient is AAOx3 (knows she is in hospital ER but can not recall which hospital). Of note pt follows with engineering director Dr. Patel. CBC/BMP: 06/15/17 0557 06/15/17 0557 Significant Findings Laboratory Tests Test 06/13/17 11:45 06/13/17 16:00 06/13/17 17:45 06/14/17 01:17 Neutrophils (%) (Auto) 74.2 % (16.0-70.0) Monocytes (%) (Auto) 11.0 % (0.0-8.0) Random Glucose 116 MG/DL (74-106) Estimat Glomerular Filtration Rate 62 ML/MIN (>89) 60 ML/MIN (>89) Urine Turbidity HAZY (CLEAR) Urine Protein 30 mg/dL (NEG-TRACE) Urine Occult Blood TRACE (NEG) Urine Nitrite POS (NEG) Urine Leukocyte Esterase LARGE (NEG) Urine RBC 26 /hpf (0-3) Urine WBC 99 /hpf (0-5) Urine WBC Clumps MANY (NONE) Urine Bacteria RARE /hpf (NONE) B-Type Natriuretic Peptide 237 PG/ML (0-100) Troponin I 0.08 NG/ML (0.02-0.05) 0.11 NG/ML (0.02-0.05) Calcium Level 8.1 MG/DL (8.5-10.1) Test 06/14/17 02:48 06/14/17 18:05 06/15/17 05:57 Prothrombin Time 12.0 SEC (9.8-11.6) 11.8 SEC (9.8-11.6) D-Dimer Quantitative (PE/DVT) 0.90 MG/L FEU (0.00-0.50) Troponin I 0.08 NG/ML (0.02-0.05) Red Blood Count 3.75 MIL/MM3 (4.00-5.30) Platelet Count 123 TH/MM3 (150-450) Calcium Level 7.9 MG/DL (8.5-10.1) Estimat Glomerular Filtration Rate 79 ML/MIN (>89) B-Type Natriuretic Peptide 136 PG/ML (0-100) Imaging Last Impressions CT Angiography 06/14/17 0000 Signed Impressions: Service Date/Time: Wednesday, June 14, 2017 05:53 - CONCLUSION: 1. No evidence of pulmonary embolism. 2. Small bilateral pleural effusions with groundglass opacities in areas of streaky opacity. 3. Mild to moderate cardiomegaly. 4. The thyroid gland remains enlarged with inhomogeneity and calcifications. Gutierrez Muniz MD Chest X-Ray 06/13/17 1129 Signed Impressions: Service Date/Time: Tuesday, June 13, 2017 11:58 - CONCLUSION: Mild pulmonary vasculature congestion possible early fluid overload Mahendra Hill MD PE at Discharge Gen: WDWN elderly white female sitting up in bed in NAD CV: Normal rate, irregularly irregular rhythm, normal S1/S2, no MRG Lungs: Vesicular breath sounds bilaterally. Mild end expiratory wheezing in lower lung alegria bilaterally, L > R. NC at 4 L. Able to speak comfortably in full sentences. No accessory muscle use. Abd: Soft, NDNT MSK: No edema of BLE Neuro: Awake, alert. Moves all extremities well. Hospital Course Admitted due to chest pain / SOB, generalized weakness. Known AFib, found to be in RVR. Labs showed mild troponin elevation, likely demand ischemia from RVR. Received one dose 20 mg lasix due to mild pulmonary congestion noted on CXR. D- dimer obtained to r/o PE which was elevated; follow-up CTA was negative. TSH within normal limits. Patient was rate-controlled with diltiazem drip and transitioned to oral agents on hospital day 1. Patient was also found to have pyelonephritis and was started on Rocephin. On hospital day 2, her SOB had essentially resolved though her oxygen requirement had increased somewhat from baseline. She was medically stable for discharge to SNF or short-term rehab center for continued PT to rebuild strength. On discharged she was prescribed Cipro for UTI. Her anticoagulation was changed from warfarin to Xarelto due to subtherapeutic INR and h/o labile INR. Her dose of oral diltiazem was also increased by the covering engineering director. She is to follow up with her engineering director Dr. South. An echocardiogram was ordered and pending at time of this documentation. If not obtained prior to D/C, she can obtain this as an outpatient. Pt Condition on Discharge: Good Discharge Disposition: Discharge to SNF Discharge Instructions DIET: Follow Instructions for: As Tolerated, No Restrictions Activities you can perform: Regular-No Restrictions Follow up Referrals: Cardiology - 1 Week with Lance Patel MD PCP Follow-up - 2 Weeks New Medications: Ciprofloxacin (Ciprofloxacin) 500 Mg Tab 500 MG PO BID for Infection for 10 Days, #20 TAB 0 Refills Rivaroxaban (Xarelto) 20 Mg Tab 20 MG PO DAILY@1600 for Blood Clot Prevention, #30 TAB 0 Refills Take daily with the evening meal Atorvastatin (Atorvastatin) 40 Mg Tab 40 MG PO DAILY, #30 TAB Diltiazem CD 24 HR (Cardizem CD 24 HR) 180 Mg Caper 180 MG PO DAILY, #30 CAP Lisinopril (Lisinopril) 5 Mg Tab 5 MG PO DAILY, #30 TAB Continued Medications: Alprazolam (Xanax) 1 Mg Tab 1 MG PO Q8H PRN for ANXIETY, TAB 0 Refills Carvedilol (Carvedilol) 25 Mg Tab 25 MG PO BID, #60 TAB 0 Refills Cholecalciferol (Vitamin D3) 1,000 Unit Chew 1000 UNITS PO DAILY for Nutritional Supplement, #1 BOTTLE 0 Refills Fluoxetine (Fluoxetine) 20 Mg Capsule 20 MG PO BID, #30 CAP 0 Refills Gabapentin (Gabapentin) 300 Mg Cap 300 MG PO BID, #60 CAP 0 Refills Discontinued Medications: Diltiazem ER 24 HR (Cartia Xt) 120 Mg Caper 120 MG PO DAILY, #30 CAP 0 Refills Warfarin (Warfarin) 5 Mg Tab 5 MG PO EVERY OTHER DAY for Blood Clot Prevention, #30 TAB 0 Refills Take 1 tablet (5mg) every other day alternating with 4mg Warfarin (Warfarin) 4 Mg Tab 4 MG PO EVERY OTHER DAY for Blood Clot Prevention, #30 TAB 0 Refills Take 1 tablet (4mg) every other day alternating with 5mg Cesar Lawler MD R2 Jun 15, 2017 11:43 am
[2017-06-15] MEDS ORDERED: RIVAROXABAN 20 MG TAB PO SCH (16:00)
--- NOTE | 2017-06-15 16:28 | PD.CARD.PN ---
Subjective Subjective Remarks FEELS A BIT BETTER STILL WITH WEAKNESS, SOB AND MANCINI REMAINS IN ATRIAL FIBRILLATION, VENTRICULAR RATE BETTER CONTROLLED Objective Medications Current Medications Medications (Trade) Dose Ordered Sig/Norma Route Start Time Stop Time Status Last Admin (NS Flush) 2 ml UNSCH PRN IV FLUSH 06/13/17 15:45 (NS Flush) 2 ml BID IV FLUSH 06/13/17 21:00 06/15/17 08:57 (Coreg) 25 mg BID PO 06/13/17 21:00 06/15/17 08:53 (Vitamin D3) 1,000 units DAILY PO 06/14/17 09:00 06/15/17 08:53 (PROzac) 20 mg BID PO 06/13/17 21:00 06/15/17 08:53 (Neurontin) 300 mg BID PO 06/13/17 21:00 06/15/17 08:53 (Coumadin) 4 mg EVERY OTHER DAY PO 06/15/17 09:00 Future Hold (Coumadin) 5 mg EVERY OTHER DAY PO 06/14/17 09:00 Future Hold 06/14/17 08:33 Ceftriaxone Sodium 2000 mg/ Sodium Chloride 100 ml @ 200 mls/hr Q24H IV 06/14/17 03:00 06/15/17 03:32 (Lipitor) 40 mg DAILY PO 06/14/17 15:45 06/15/17 08:54 (Prinivil) 5 mg DAILY PO 06/14/17 16:00 06/15/17 08:54 (Cardizem Cd) 180 mg DAILY PO 06/15/17 09:00 06/15/17 08:54 (Xarelto) 20 mg AC DINNER PO 06/15/17 16:00 06/15/17 15:47 Vital Signs / I&O Vital Signs Date Time Temp Pulse Resp B/P (MAP) Pulse Ox O2 Delivery O2 Flow Rate FiO2 06/15/17 12:00 98.4 78 19 111/55 (73) 93 06/15/17 09:59 93 Nasal Cannula 4.00 06/15/17 09:43 99 06/15/17 08:00 98.0 82 19 143/67 (92) 93 06/15/17 07:38 Nasal Cannula 4.00 06/15/17 04:00 Nasal Cannula 4.00 06/15/17 04:00 98.1 99 20 127/60 (82) 96 06/15/17 00:00 98.4 84 20 116/67 (83) 93 06/15/17 00:00 Nasal Cannula 4.00 06/14/17 20:00 Nasal Cannula 4.00 06/14/17 20:00 99.1 97 21 146/77 (100) 93 06/14/17 17:30 93 Nasal Cannula 4.00 I/O 06/14/17 06/14/17 06/14/17 06/15/17 06/15/17 06/15/17 07:00 15:00 23:00 07:00 15:00 23:00 Intake Total 662 ml 380 ml 350 ml Output Total 520 ml Balance 142 ml 380 ml 350 ml Intake Oral 480 ml 380 ml 250 ml IV Total 182 ml 100 ml Output Urine Total 520 ml # Voids 2 5 2 # Bowel Movements 0 1 Physical Exam NAD ANICTERIC, RUBEN FLAT JVD BIBASILAR CRACKLES ABD SOFT EXTR WITH EDEMA Laboratory Laboratory Tests Test 06/14/17 18:05 06/15/17 05:57 Total Creatine Kinase 72 U/L Troponin I 0.08 NG/ML White Blood Count 4.0 TH/MM3 Red Blood Count 3.75 MIL/MM3 Hemoglobin 12.0 GM/DL Hematocrit 36.0 % Mean Corpuscular Volume 96.0 FL Mean Corpuscular Hemoglobin 32.0 PG Mean Corpuscular Hemoglobin Concent 33.3 % Red Cell Distribution Width 13.3 % Platelet Count 123 TH/MM3 Mean Platelet Volume 8.7 FL Prothrombin Time 11.8 SEC Prothromb Time International Ratio 1.1 RATIO Blood Urea Nitrogen 17 MG/DL Creatinine 0.70 MG/DL Random Glucose 87 MG/DL Calcium Level 7.9 MG/DL Sodium Level 137 MEQ/L Potassium Level 3.5 MEQ/L Chloride Level 103 MEQ/L Carbon Dioxide Level 25.9 MEQ/L Anion Gap 8 MEQ/L Estimat Glomerular Filtration Rate 79 ML/MIN B-Type Natriuretic Peptide 136 PG/ML Thyroid Stimulating Hormone 3rd Gen 0.838 uIU/ML Assessment and Plan Assessment and Plan IMPRESSION 1. Atrial fibrillation with rapid ventricular rate, now better controlled. 2. Chest pain syndrome likely due to demand ischemia. 3. Borderline positive troponins due to demand ischemia, type 2 ACS. 4. She has high-risk CHADS-Vasc score 6 points based on age, history of CVA, hypertension, female gender and a history of vascular disease. 5. Hypertension. 6. Shortness of breath likely due to pulmonary congestion without overt CHF, she has low BNP. 7. Progressive generalized weakness likely due to exercise intolerance/deconditioning in the elderly and UTI. 8. UTI. PLAN: MEDICATIONS REVIEWED, CONTINUE SAME AWAIT ECHO DR ROBERTS WILL RETURN IN AM Piter Weber MD Jun 15, 2017 16:28
[2017-06-16] VITALS: BP 117/58; PULSE 90; RESP 18; TEMP 97.9; O2SAT 94
[2017-06-16] MEDS: cefTRIAXone INJ 2,000 MG in SODIUM CHLORIDE 0.9% INJ 100 ML IV SCH (02:14)
[2017-06-16 04:00] VITALS: BP 140/74; PULSE 87; RESP 18; TEMP 98; O2SAT 97
[2017-06-16 08:00] VITALS: BP 137/65; PULSE 96; RESP 20; TEMP 97.6; O2SAT 95
--- NOTE | 2017-06-16 08:43 | PD.CARD.PN ---
Subjective Subjective Remarks Feeling stronger. Sitting up on side of bed. No CP or SOB. Objective Medications Current Medications Medications (Trade) Dose Ordered Sig/Norma Route Start Time Stop Time Status Last Admin (NS Flush) 2 ml UNSCH PRN IV FLUSH 06/13/17 15:45 (NS Flush) 2 ml BID IV FLUSH 06/13/17 21:00 06/15/17 20:09 (Coreg) 25 mg BID PO 06/13/17 21:00 06/15/17 20:09 (Vitamin D3) 1,000 units DAILY PO 06/14/17 09:00 06/15/17 08:53 (PROzac) 20 mg BID PO 06/13/17 21:00 06/15/17 20:09 (Neurontin) 300 mg BID PO 06/13/17 21:00 06/15/17 20:09 (Coumadin) 4 mg EVERY OTHER DAY PO 06/15/17 09:00 Future Hold (Coumadin) 5 mg EVERY OTHER DAY PO 06/14/17 09:00 Future Hold 06/14/17 08:33 Ceftriaxone Sodium 2000 mg/ Sodium Chloride 100 ml @ 200 mls/hr Q24H IV 06/14/17 03:00 06/16/17 02:14 (Lipitor) 40 mg DAILY PO 06/14/17 15:45 06/15/17 08:54 (Prinivil) 5 mg DAILY PO 06/14/17 16:00 06/15/17 08:54 (Cardizem Cd) 180 mg DAILY PO 06/15/17 09:00 06/15/17 08:54 (Xarelto) 20 mg AC DINNER PO 06/15/17 16:00 06/15/17 15:47 Vital Signs / I&O Vital Signs Date Time Temp Pulse Resp B/P (MAP) Pulse Ox O2 Delivery O2 Flow Rate FiO2 06/16/17 04:00 Nasal Cannula 3.00 06/16/17 04:00 98.0 87 18 140/74 (96) 97 06/16/17 00:00 Nasal Cannula 3.00 06/16/17 00:00 97.9 90 18 117/58 (77) 94 06/15/17 20:16 94 Nasal Cannula 3.00 06/15/17 20:10 Nasal Cannula 3.00 06/15/17 20:00 98.7 97 19 127/60 (82) 94 06/15/17 16:00 98.8 92 19 139/68 (91) 95 06/15/17 12:00 98.4 78 19 111/55 (73) 93 06/15/17 09:59 93 Nasal Cannula 4.00 06/15/17 09:43 99 I/O 06/15/17 06/15/17 06/15/17 06/16/17 06/16/17 06/16/17 07:00 15:00 23:00 07:00 15:00 23:00 Intake Total 350 ml 380 ml 200 ml Balance 350 ml 380 ml 200 ml Intake Oral 250 ml 380 ml 100 ml IV Total 100 ml 100 ml # Voids 2 4 5 # Bowel Movements 1 0 Physical Exam Hemodynamics and HR stable. No JVD Lungs: CTA Heart: Irreg, S1, S2, 1/6 DAVID at base. Ext: No C/C/E Neuro: Non-focal. Laboratory Laboratory Tests Test 06/13/17 11:45 06/13/17 16:00 06/14/17 02:48 06/14/17 18:05 Neutrophils (%) (Auto) 74.2 % Lymphocytes (%) (Auto) 14.5 % Monocytes (%) (Auto) 11.0 % Eosinophils (%) (Auto) 0.0 % Basophils (%) (Auto) 0.3 % Neutrophils # (Auto) 6.2 TH/MM3 Lymphocytes # (Auto) 1.2 TH/MM3 Monocytes # (Auto) 0.9 TH/MM3 Eosinophils # (Auto) 0.0 TH/MM3 Basophils # (Auto) 0.0 TH/MM3 CBC Comment DIFF FINAL Differential Comment Activated Partial Thromboplast Time 26.1 SEC Blood Urea Nitrogen 13 MG/DL Creatinine 0.86 MG/DL Random Glucose 116 MG/DL Calcium Level 8.6 MG/DL Magnesium Level 1.9 MG/DL Sodium Level 136 MEQ/L Potassium Level 4.1 MEQ/L Chloride Level 103 MEQ/L Carbon Dioxide Level 27.5 MEQ/L Urine Color YELLOW Urine Turbidity HAZY Urine pH 7.5 Urine Specific Holden 1.015 Urine Protein 30 mg/dL Urine Glucose (UA) NEG mg/dL Urine Ketones NEG mg/dL Urine Occult Blood TRACE Urine Nitrite POS Urine Bilirubin NEG Urine Urobilinogen LESS THAN 2.0 MG/DL Urine Leukocyte Esterase LARGE Urine RBC 26 /hpf Urine WBC 99 /hpf Urine WBC Clumps MANY Urine Bacteria RARE /hpf Microscopic Urinalysis Comment CULTURE INDICATED D-Dimer Quantitative (PE/DVT) 0.90 MG/L FEU Total Creatine Kinase 72 U/L Troponin I 0.08 NG/ML Test 06/15/17 05:57 White Blood Count 4.0 TH/MM3 Red Blood Count 3.75 MIL/MM3 Hemoglobin 12.0 GM/DL Hematocrit 36.0 % Mean Corpuscular Volume 96.0 FL Mean Corpuscular Hemoglobin 32.0 PG Mean Corpuscular Hemoglobin Concent 33.3 % Red Cell Distribution Width 13.3 % Platelet Count 123 TH/MM3 Mean Platelet Volume 8.7 FL Prothrombin Time 11.8 SEC Prothromb Time International Ratio 1.1 RATIO Blood Urea Nitrogen 17 MG/DL Creatinine 0.70 MG/DL Random Glucose 87 MG/DL Calcium Level 7.9 MG/DL Sodium Level 137 MEQ/L Potassium Level 3.5 MEQ/L Chloride Level 103 MEQ/L Carbon Dioxide Level 25.9 MEQ/L Anion Gap 8 MEQ/L Estimat Glomerular Filtration Rate 79 ML/MIN B-Type Natriuretic Peptide 136 PG/ML Thyroid Stimulating Hormone 3rd Gen 0.838 uIU/ML Assessment and Plan Problem List: (1) Weakness generalized ICD Codes: R53.1 - Weakness generalized Status: Acute (2) Permanent atrial fibrillation ICD Codes: I48.2 - Permanent atrial fibrillation Status: Chronic (3) ASHD (arteriosclerotic heart disease) ICD Codes: I25.10 - ASHD (arteriosclerotic heart disease) Status: Chronic (4) Elevated troponin I level ICD Codes: R74.8 - Abnormal levels of other serum enzymes Status: Resolved Assessment and Plan CV stable. Would continue supportive care and current cardiac meds. Consider inpatient rehab or ACF after discharge. Lance Patel MD Jun 16, 2017 08:43
[2017-06-16] MEDS: DILTIAZEM-CD 180 MG CAP ER PO SCH (09:00)
[2017-06-16] MEDS: ATORVASTATIN 40 MG TAB PO SCH (09:13)
[2017-06-16] MEDS: CARVEDILOL 12.5 MG TAB PO SCH (09:13)
[2017-06-16] MEDS: FLUoxetine HCL 20 MG CAP PO SCH (09:13)
[2017-06-16] MEDS: LISINOPRIL 5 MG TAB PO SCH (09:14)
[2017-06-16] MEDS: CHOLECALCIFEROL (VIT D3) 1000 UNIT TAB PO SCH (09:14)
[2017-06-16] MEDS: SODIUM CHLORIDE 0.9% FLUSH 10 ML FLUSH IV FLUSH SCH (09:15)
[2017-06-16] MEDS: GABAPENTIN 300 MG CAP PO SCH (09:15)
--- NOTE | 2017-06-16 09:28 | HHI.FPPN ---
Subjective Remarks No acute events overnight. Afebrile, vitals are stable. She denies any CP, SOB, cough, dysuria. She states her last BM was this past . Per EMR, patient did have BMs documented today and yesterday. Endorses flatus. She denies any abdominal pain or distension. (Gregg Tolentino MD R2) Objective Vitals Vital Signs Date Time Temp Pulse Resp B/P (MAP) Pulse Ox O2 Delivery O2 Flow Rate FiO2 06/16/17 04:00 Nasal Cannula 3.00 06/16/17 04:00 98.0 87 18 140/74 (96) 97 06/16/17 00:00 Nasal Cannula 3.00 06/16/17 00:00 97.9 90 18 117/58 (77) 94 06/15/17 20:16 94 Nasal Cannula 3.00 06/15/17 20:10 Nasal Cannula 3.00 06/15/17 20:00 98.7 97 19 127/60 (82) 94 06/15/17 16:00 98.8 92 19 139/68 (91) 95 06/15/17 12:00 98.4 78 19 111/55 (73) 93 06/15/17 09:59 93 Nasal Cannula 4.00 06/15/17 09:43 99 I/O 06/15/17 06/15/17 06/15/17 06/16/17 06/16/17 06/16/17 07:00 15:00 23:00 07:00 15:00 23:00 Intake Total 350 ml 380 ml 200 ml Balance 350 ml 380 ml 200 ml Intake Oral 250 ml 380 ml 100 ml IV Total 100 ml 100 ml # Voids 2 4 5 # Bowel Movements 1 0 (Gregg Tolentino MD R2) Result Diagram: 06/15/17 0557 06/15/17 0557 Objective Remarks Gen: WDWN elderly white female sitting up in bed in NAD CV: Normal rate, irregularly irregular rhythm, normal S1/S2, no MRG Lungs: Vesicular breath sounds bilaterally. Mild end expiratory wheezing in lower lung alegria bilaterally, L > R. NC at 4 L. Able to speak comfortably in full sentences. No accessory muscle use. Abd: Soft, NDNT MSK: No edema of BLE Neuro: Awake, alert. Moves all extremities well. (Gregg Tolentino MD R2) A/P Assessment and Plan Patient is a 86 yo F with PMHx of A. fib (previously on warfarin), HTN, CVA, stent placements presenting with: Discharge Planning Anticipate discharge today to SNF (Gregg Tolentino MD R2) Attending Attestation Patient seen and examined. Case reviewed and discussed with the resident team. Agree with plan of care as discussed with me and documented in the resident note. (Shreya Key MD) Problem List: (1) Atrial fibrillation with RVR ICD Codes: I48.91 - Unspecified atrial fibrillation Status: Acute Plan: In AFib with RVR on admission, rate now controlled - Cardiology consulted, appreciate recommendations - Troponin elevation (noted below) likely from demand ischemia due to RVR - Cont Coreg - Increased PO diltiazem ER to 180 mg PO daily - Added lisinopril 5 mg daily - Added atorvastatin 40 mg HS - Lovenox discontinued - Discharge on Xarelto 20 mg daily; warfarin discontinued - Patient good candidate for Xarelto due to labile INRs in past, subtherapeutic on admission (2) SOB (shortness of breath) ICD Codes: R06.02 - SOB (shortness of breath) Status: Resolved Plan: Symptoms stable CXR: mild pulmonary vascular congestion Troponin trend: Item Value Date Time Troponin I 0.03 NG/ML 06/13/17 1145 Troponin I 0.08 NG/ML H 06/13/17 1745 Troponin I 0.11 NG/ML H 06/14/17 0117 Troponin I 0.08 NG/ML H 06/14/17 1805 BNP 237 on admission, repeat 180s D-dimer elevated to 0.90; CTA negative for PE - Echocardiogram pending, symptoms stable; this can be done as outpatient with Dr. South - Continue oxygen as needed (came in on 2L) (3) Weakness generalized ICD Codes: R53.1 - Weakness generalized Status: Acute Plan: Likely due to cardiac disease and UTI combination - Manage cardiac problems as noted - PT at rehab; CM consulted to arrange placement (4) UTI (urinary tract infection) ICD Codes: N39.0 - Urinary tract infection, site not specified Status: Acute Plan: Patient reported chronic sxs of urinary frequency. Afebrile. WBC WNL Symptoms now resolved UA with WBC clumps suggesting pyelonephritis Urine Cx growing E coli sensitive to Augmentin, Cipro - S/p 3 days Rocephin - Antibiotic coverage can be changed to Ciprofloxacin on discharge; will need 10 -14 days of total treatment Antibiotic History Rocephin 06/14 - present (5) Nutrition, metabolism, and development symptoms ICD Codes: R63.8 - Other symptoms and signs concerning food and fluid intake Plan: Fluids: not indicated at this time Electrolytes: WNL, replete as needed Nutrition: regular diet DVT ppx: on Xarelto Code status: full code (Gregg Tolentino MD R2) Problem Qualifiers (1) UTI (urinary tract infection): Qualified Codes: N10 - Acute pyelonephritis Gregg Tolentino MD R2 Jun 16, 2017 09:28 Shreya Key MD Jun 16, 2017 12:40
[2017-06-16] MEDS ORDERED: MAGNESIUM HYDROXIDE SUSP 30 ML CUP PO PRN (10:00)
[2017-06-16 12:00] VITALS: BP 118/58; PULSE 85; RESP 18; TEMP 97.6; O2SAT 99
--- NOTE | 2017-06-16 16:13 | ECHRPT ---
Indication: sob CONCLUSIONS The left ventricular systolic function is normal with an estimated ejection fraction in the range of 55-60% with borderline LVH> Normal left ventricular size. The left atrial size is mildly dilated. Mitral annular calcification is present. Mild mitral valve regurgitation. Diffuse calcification of the aortic valve. Suspect mild aortic stenosis. Aortic valve area is 1 cm. Aortic valve mean gradient is 17 mmHg. There is mild tricuspid valve regurgitation. The estimated pulmonary arterial pressure is 54.9 mmHg. There is estimated moderate pulmonary hypertension present (range 50-60 mmHg). BP: 143 / 67 HR: Rhythm: MEASUREMENTS (Male / Female) Normal Values Technical Quality:Good 2D ECHO LV Diastolic Diameter PLAX 4.5 cm 4.2 - 5.9 / 3.9 - 5.3 cm LV Systolic Diameter PLAX 3.4 cm IVS Diastolic Thickness 1.2 cm 0.6 - 1.0 / 0.6 - 0.9 cm LVPW Diastolic Thickness 1.1 cm 0.6 - 1.0 / 0.6 - 0.9 cm LV Relative Wall Thickness 0.5 RV Internal Dim ED PLAX 2.5 cm LVOT Diameter 2.4 cm M-MODE Aortic Root Diameter MM 2.9 cm LA Systolic Diameter MM 4.6 cm LA Ao Ratio MM 1.6 AV Cusp Separation MM 1.1 cm DOPPLER AV Peak Velocity 278.0 cm/s AV Peak Gradient 30.9 mmHg AV Mean Gradient 17.0 mmHg AV Velocity Time Integral 69.0 cm LVOT Peak Velocity 69.2 cm/s LVOT Peak Gradient 1.9 mmHg LVOT Velocity Time Integral 15.6 cm AV Area Cont Eq vti 1.0 cm AV Area Cont Eq pk 1.1 cm LV E' Lateral Velocity 6.1 cm/s LV E' Septal Velocity 6.5 cm/s TR Peak Velocity 335.0 cm/s TR Peak Gradient 44.9 mmHg Right Atrial Pressure 10.0 mmHg Pulmonary Artery Systolic Pressu 54.9 mmHg Right Ventricular Systolic Press 54.9 mmHg FINDINGS LEFT VENTRICLE The left ventricular systolic function is normal with an estimated ejection fraction in the range of 55-60% with borderline LVH> Normal left ventricular size. RIGHT VENTRICLE Normal right ventricular size and systolic function. LEFT ATRIUM The left atrial size is mildly dilated. RIGHT ATRIUM The right atrial size is normal. ATRIAL SEPTUM Normal atrial septal thickness without atrial level shunting by limited color doppler interrogation. AORTA The aortic root and proximal ascending aorta are normal in size on limited imaging. MITRAL VALVE Mitral annular calcification is present. Mild mitral valve regurgitation. AORTIC VALVE Trileaflet aortic valve. Diffuse calcification of the aortic valve. Suspect mild aortic stenosis. Aortic valve area is 1 cm. Aortic valve mean gradient is 17 mmHg. TRICUSPID VALVE There is mild tricuspid valve regurgitation. Structurally normal tricuspid valve. The estimated pulmonary arterial pressure is 54.9 mmHg. There is estimated moderate pulmonary hypertension present (range 50-60 mmHg). PULMONARY VALVE No pulmonary valve regurgitation or stenosis. VESSELS The inferior vena cava is normal in size. PERICARDIUM No pericardial effusion. Ernie Bell MD (Electronically Signed) Final Date:16 June 2017 16:11
== END 2017-06-16 16:34 | DRG 309 ==
LOC: NEPE 10:55 → NEDA 14:57 → N04A 16:12
PROVIDERS: ADMIT Family Medicine; ATTEND Family Medicine
DX: I48.2 Chronic atrial fibrillation (principal); N10 Acute pyelonephritis; I11.0 Hypertensive heart disease with heart failure; I50.9 Heart failure, unspecified; R53.1 Weakness; R32 Unspecified urinary incontinence; I25.10 Atherosclerotic heart disease of native coronary artery without angina pectoris; G89.29 Other chronic pain; M25.562 Pain in left knee; F41.9 Anxiety disorder, unspecified; F32.9 Major depressive disorder, single episode, unspecified; E78.00 Pure hypercholesterolemia, unspecified; R79.1 Abnormal coagulation profile; B96.20 Unspecified Escherichia coli [E. coli] as the cause of diseases classified elsewhere; Z95.5 Presence of coronary angioplasty implant and graft; Z79.01 Long term (current) use of anticoagulants; Z86.73 Personal history of transient ischemic attack (TIA), and cerebral infarction without residual deficits
CPT/HCPCS: 71010; 71275; 80048; 81001; 82550; 83735; 83880; 84443; 84484; 85025; 85027; 85379; 85610; 85730; 87077; 87086; 87186; 93005; 93306; 96365; 96366; 96375; J0696; J1650; J1940; Q9967

== ENCOUNTER 2017-08-18 17:21 | Observation (INO) | payer MEDICARE, BC ==
[~2017-08-18] VITALS: Ht 170.2 cm; Wt 82.6 kg
[~2017-08-18 17:21] MED LIST changes: +ATOR40TA16 PO; +CARD180C5 PO; -CART120C PO; +CIPR500T2 PO; +GABA300C5 PO; -GABA400C5 PO; +LISI-519 PO; -TRAM50TA PO; -WARF-23 PO; +XARE20TA PO
[2017-08-18 17:25] VITALS: BP 113/59; PULSE 65; RESP 16; TEMP 97.5; O2SAT 91
[2017-08-18] MEDS ORDERED: SODIUM CHLOR 0.9% 1000 ML INJ 1,000 ML IV ONE ×2 (17:38→18:45)
--- NOTE | 2017-08-18 17:56 | PD ---
HPI . Altered mental status Chief Complaint: Altered Mental Status Time Seen by Provider: 17:32 Travel History International Travel<30 days: No Contact w/Intl Traveler<30days: No Traveled to known affect area: No History of Present Illness HPI This patient is brought to us by rescue because of altered mental status. He reports was that this started at about 1 PM. The patient lives at home with family. Family is not yet here. The patient is unable to give a good history. Records reveal a history of A. fib and episode of RVR in May. She had an echo done during that hospitalization which showed an ejection fraction of 55-60 %. Her rate was controlled with Cardizem. She was treated with Lasix 20 mg IV for some mild CHF with excellent improvement in her respiratory status. She was discharged on Cipro for urinary tract infection. Her Coumadin was changed to Xarelto during that hospitalization. Other medical problems include a previous stroke with some left-sided weakness. Family is now here. They report that she was just released from rehabilitation following her hospitalization for A. fib with RVR. They report increasing somnolence over the course of the afternoon. She was having a great deal of difficulty speaking at home prior to the arrival of the rescue squad. PFSH Past Medical History Hx Anticoagulant Therapy: Yes (Xarelto ) Arthritis: No Asthma: No Anxiety: Yes Depression: Yes Heart Rhythm Problems: Yes (A FIB) Cancer: No Cardiac Catheterization: Yes Cardiovascular Problems: Yes (A Fib) High Cholesterol: Yes Chemotherapy: No Chest Pain: No Congestive Heart Failure: No COPD: No Cerebrovascular Accident: Yes Coronary Artery Disease: Yes Diabetes: No Diminished Hearing: No Deep Vein Thrombosis: Yes Endocrine: No GERD: No Genitourinary: No Hepatitis: No Hiatal Hernia: No Hypertension: Yes Immune Disorder: No Kidney Stones: No Musculoskeletal: No Neurologic: No Psychiatric: No Reproductive: No Respiratory: Yes Migraines: Yes Radiation Therapy: No Renal Failure: No Seizures: No Sickle Cell Disease: No Sleep Apnea: No Thyroid Disease: Yes (NODULES ON THYROID) Ulcer: No Menopausal: Yes Past Surgical History Abdominal Surgery: No AICD: No Appendectomy: Yes Arteriovenous Shunt: No Cardiac Surgery: Yes (S TENTS IN CHEST AND ONE IN RT LEG , CAROTID STENT ) Coronary Stent: Yes Ear Surgery: No Endocrine Surgery: No Eye Surgery: Yes (CATARACT SURGERY) Genitourinary Surgery: No Gynecologic Surgery: Yes (REMOVERD CYCT FROM RT BREAST) Insulin Pump: No Joint Replacement: No Oral Surgery: No Pacemaker: Yes (STENTS) Thoracic Surgery: No Tonsillectomy: Yes Other Surgery: Yes (RT FEMORAL STENT) Social History Alcohol Use: No Tobacco Use: No Substance Use: No Allergies-Medications (Allergen,Severity, Reaction): Coded Allergies: oxytetracycline (Unverified Allergy, Severe, SWELLING/HIVES, 06/13/17) Reported Meds & Prescriptions Reported Meds & Active Scripts Active Ciprofloxacin (Ciprofloxacin HCl) 500 Mg Tab 500 Mg PO BID 10 Days Xarelto (Rivaroxaban) 20 Mg Tab 20 Mg PO DAILY@1600 Take daily with the evening meal Lisinopril 5 Mg Tab 5 Mg PO DAILY Cardizem CD 24 HR (Diltiazem CD 24 HR) 180 Mg Caper 180 Mg PO DAILY Atorvastatin (Atorvastatin Calcium) 40 Mg Tab 40 Mg PO DAILY Reported Gabapentin 300 Mg Cap 300 Mg PO BID Vitamin D3 (Cholecalciferol) 1,000 Unit Chew 1,000 Units PO DAILY Carvedilol 25 Mg Tab 25 Mg PO BID Fluoxetine (Fluoxetine HCl) 20 Mg Capsule 20 Mg PO BID Xanax (Alprazolam) 1 Mg Tab 1 Mg PO Q8H PRN Review of Systems ROS Limitations: Poor Historian Physical Exam Narrative GENERAL: Patient has a distressed look on her face. She appears short of breath. SKIN: warm/dry. Good color and turgor. HEAD: Normocephalic. Atraumatic. EYES: Pupils equal and round. No scleral icterus. No injection or drainage. ENT: No nasal bleeding or discharge. Mucous membranes dry. NECK: Trachea midline. Full range of motion without pain.. CARDIOVASCULAR: Irregular rhythm. She has a systolic murmur. RESPIRATORY: + accessory muscle use. Clear to auscultation. Breath sounds equal bilaterally. GASTROINTESTINAL: Abdomen soft. Nontender. Bowel sounds present. Nondistended. MUSCULOSKELETAL: No obvious deformities. NEUROLOGICAL: Awake and alert. No obvious cranial nerve deficits. Speech is difficult to understand. PSYCHIATRIC: Unable to assess. Data Data Last Documented VS Vital Signs Date Time Temp Pulse Resp B/P (MAP) Pulse Ox O2 Delivery O2 Flow Rate FiO2 08/18/17 20:32 72 18 135/72 (93) 95 Nasal Cannula 08/18/17 19:27 2.00 08/18/17 17:25 97.5 Orders Orders Sepsis Workup Initiated (08/18/17 ) Electrocardiogram (08/18/17 17:38) Complete Blood Count With Diff (08/18/17 17:38) Comprehensive Metabolic Panel (08/18/17 17:38) Lactic Acid Sepsis Protocol (08/18/17 17:38) Urinalysis - C+S If Indicated (08/18/17 17:38) Influenzae A/B Antigen (08/18/17 17:38) Blood Culture (08/18/17 17:38) Chest, Single Ap (08/18/17 17:38) Ecg Monitoring (08/18/17 17:38) Iv Access Insert/Monitor (08/18/17 17:38) Cath For Specimen (08/18/17 17:38) Oximetry (08/18/17 17:38) Oxygen Administration (08/18/17 17:38) Sodium Chlor 0.9% 1000 Ml Inj (Ns 1000 M (08/18/17 17:38) Sodium Chlor 0.9% 1000 Ml Inj (Ns 1000 M (08/18/17 18:45) Urine Culture (08/18/17 18:39) Ct Brain W/O Iv Contrast(Rout) (08/18/17 19:34) Sodium Chlor 0.9% 1000 Ml Inj (Ns 1000 M (08/18/17 21:00) Ceftriaxone Inj (Rocephin Inj) (08/18/17 22:00) Place In Observation (08/18/17 ) Vital Signs (Adult) Q4H (08/18/17 20:56) Neuro Checks Q4H (08/18/17 20:56) Activity Oob With Assistance (08/18/17 20:56) Intake + Output CARMITA.QSHIFT (08/18/17 20:56) Diet Regular Basic (08/19/17 Breakfast) Sodium Chlor 0.9% 1000 Ml Inj (Ns 1000 M (08/18/17 21:00) Sodium Chloride 0.9% Flush (Ns Flush) (08/18/17 21:00) Sodium Chloride 0.9% Flush (Ns Flush) (08/18/17 21:00) Ondansetron Inj (Zofran Inj) (08/18/17 21:00) Comprehensive Metabolic Panel (08/19/17 06:00) Complete Blood Count With Diff (08/19/17 06:00) Pt Request For Service (08/18/17 20:56) Case Management Consult (08/18/17 20:56) Scd Bilateral/Knee High CARMITA.BID (08/18/17 20:56) [place]ito Bilateral/Knee High CARMITA.QSHIFT (08/18/17 21:00) Acetaminophen (Tylenol) (08/18/17 21:00) Acetamin-Hydrocod 325-5 Mg ([place] 5-325 (08/18/17 21:00) Acetamin-Hydrocod 325-10 Mg ([place] 10-32 (08/18/17 21:00) Docusate Sodium-Senna (Shamika-Colace) (08/18/17 21:00) Magnesium Hydroxide Liq (Milk Of Magnesi (08/18/17 21:00) Sennosides (Senokot) (08/18/17 21:00) Bisacodyl Supp (Dulcolax Supp) (08/18/17 21:00) Lactulose Liq (Lactulose Liq) (08/18/17 21:00) Admit Order (Ed Use Only) (08/18/17 20:58) Ceftriaxone Inj (Rocephin Inj) (08/18/17 21:00) Labs Laboratory Tests Test 08/18/17 17:50 08/18/17 18:39 White Blood Count 4.4 TH/MM3 Red Blood Count 4.31 MIL/MM3 Hemoglobin 13.1 GM/DL Hematocrit 40.0 % Mean Corpuscular Volume 92.8 FL Mean Corpuscular Hemoglobin 30.3 PG Mean Corpuscular Hemoglobin Concent 32.7 % Red Cell Distribution Width 13.0 % Platelet Count 174 TH/MM3 Mean Platelet Volume 8.5 FL Neutrophils (%) (Auto) 59.6 % Lymphocytes (%) (Auto) 25.2 % Monocytes (%) (Auto) 9.7 % Eosinophils (%) (Auto) 2.3 % Basophils (%) (Auto) 3.2 % Neutrophils # (Auto) 2.7 TH/MM3 Lymphocytes # (Auto) 1.1 TH/MM3 Monocytes # (Auto) 0.4 TH/MM3 Eosinophils # (Auto) 0.1 TH/MM3 Basophils # (Auto) 0.1 TH/MM3 CBC Comment DIFF FINAL Differential Comment Blood Urea Nitrogen 21 MG/DL Creatinine 0.81 MG/DL Random Glucose 97 MG/DL Total Protein 6.2 GM/DL Albumin 2.8 GM/DL Calcium Level 8.3 MG/DL Alkaline Phosphatase 85 U/L Aspartate Amino Transf (AST/SGOT) 17 U/L Alanine Aminotransferase (ALT/SGPT) 19 U/L Total Bilirubin 0.4 MG/DL Sodium Level 141 MEQ/L Potassium Level 4.3 MEQ/L Chloride Level 108 MEQ/L Carbon Dioxide Level 28.8 MEQ/L Anion Gap 4 MEQ/L Estimat Glomerular Filtration Rate 67 ML/MIN Lactic Acid Level 0.6 mmol/L Urine Color ULISSES Urine Turbidity CLEAR Urine pH 5.5 Urine Specific [place] 1.025 Urine Protein NEG mg/dL Urine Glucose (UA) NEG mg/dL Urine Ketones NEG mg/dL Urine Occult Blood NEG Urine Nitrite POS Urine Bilirubin NEG Urine Leukocyte Esterase NEG Urine WBC 20-24 /hpf Urine WBC Clumps FEW Urine Squamous Epithelial Cells 0-5 /hpf Urine Mucus FEW /lpf Microscopic Urinalysis Comment CULTURE INDICATED MDM Medical Decision Making Medical Screen Exam Complete: Yes Emergency Medical Condition: Yes Medical Record Reviewed: Yes (Please HPI for results of record review.) Interpretation(s) EKG shows atrial fibrillation with a slow ventricular response at 61. Differential Diagnosis Differential diagnosis of altered mental status includes but is not limited to infection, electrolyte abnormality, neurological event, intoxication Narrative Course This patient was sent to us by rescue for altered mental status. She looks dehydrated. I have initiated a septic workup. She will be given IV fluids. I suspect that some of her difficulty speaking is her extremely dry mouth. Last Impressions Chest X-Ray 08/18/17 0804 Signed Impressions: Service Date/Time: Friday, August 18, 2017 17:59 - CONCLUSION: No acute disease. Gutierrez Muniz MD The chest x-ray was independently viewed by me. CBC & BMP Diagram 08/18/17 17:50 Total Protein 6.2 L, Albumin 2.8 L, Calcium Level 8.3 L, Alkaline Phosphatase 85 , Aspartate Amino Transf (AST/SGOT) 17, Alanine Aminotransferase (ALT/SGPT) 19, Total Bilirubin 0.4 Flu screen is negative. Patient has had about 500 cc of fluid. She looks much better. Her mouth is starting to get moist. She can talk better. She looks more bright-eyed. The nurse reports that her catheter urine was very concentrated appearing. I have ordered a second liter of fluid. Care was turned over to Dr. Nicolas at 7:00 PM. Diagnosis Primary Impression: Dehydration Condition: Stable Lisset Jones MD Aug 18, 2017 17:56
[2017-08-18 18:05] LABS: AUTOMATED NEUTROPHIL # 2.7 TH/MM3 (1.8-7.7); BASOPHIL # 0.1 TH/MM3 (0-0.2); BASOPHIL % 3.2 % (0.0-2.0); EOSINOPHIL # 0.1 TH/MM3 (0-0.4); EOSINOPHIL % 2.3 % (0.0-4.0); HEMOGLOBIN 13.1 GM/DL (11.6-15.3); LYMPH % 25.2 % (9.0-44.0); LYMPHOCYTE # 1.1 TH/MM3 (1.0-4.8); MEAN CELL VOLUME 92.8 FL (80.0-100.0); MEAN CORPUSCULAR HEMOGLOBIN 30.3 PG (27.0-34.0); MEAN CORPUSCULAR HGB CONC 32.7 % (32.0-36.0); MEAN PLATELET VOLUME 8.5 FL (7.0-11.0); MONO % 9.7 % (0.0-8.0); MONOCYTE # 0.4 TH/MM3 (0-0.9); NEUT % 59.6 % (16.0-70.0); PLATELET COUNT 174 TH/MM3 (150-450); RED BLOOD COUNT 4.31 MIL/MM3 (4.00-5.30); WHITE BLOOD COUNT 4.4 TH/MM3 (4.0-11.0)
--- NOTE | 2017-08-18 18:07 | RADRPT ---
EXAM DATE/TIME: 08/18/2017 17:59 [facility] COMPARISON: CHEST SINGLE AP, June 13, 2017, 11:58. INDICATIONS : Shortness of breath. MEDICAL HISTORY : Cardiovascular disease. Myocardial infarction. Deep venous thrombosis. CHF. SURGICAL HISTORY : Cardiac and carotid stents ENCOUNTER: Initial ACUITY: 1 day PAIN SCORE: 0/10 LOCATION: Bilateral chest FINDINGS: A single view of the chest demonstrates the lungs to be symmetrically aerated without evidence of mas s, infiltrate or effusion. The cardiomediastinal contours are unremarkable. Osseous structures are intact. Atherosclerotic changes are present in the aorta. There are overlying electrocardiogram leads . CONCLUSION: No acute disease. Gutierrez Muniz MD on August 18, 2017 at 18:04 Board Certified Radiologist. This report was verified electronically.
[2017-08-18 18:12] LABS: CHLORIDE 108 MEQ/L (98-107); SODIUM (NA) 141 MEQ/L (136-145)
[2017-08-18 18:15] LABS: CALCIUM 8.3 MG/DL (8.5-10.1)
[2017-08-18 18:16] LABS: ALBUMIN 2.8 GM/DL (3.4-5.0); BICARBONATE 28.8 MEQ/L (21.0-32.0); BLOOD UREA NITROGEN 21 MG/DL (7-18); GLUCOSE,RANDOM 97 MG/DL (74-106)
[2017-08-18 18:19] LABS: ALT (GPT) 19 U/L (10-53); AST (GOT) 17 U/L (15-37); CREATININE 0.81 MG/DL (0.50-1.00); GLOMERULAR FILTRATION RATE 67 ML/MIN (>89)
[2017-08-18 18:21] LABS: TOTAL BILIRUBIN ADULT 0.4 MG/DL (0.2-1.0); TOTAL PROTEIN 6.2 GM/DL (6.4-8.2)
[2017-08-18 18:22] LABS: ALKALINE PHOSPHATASE 85 U/L (45-117)
[2017-08-18 18:26] VITALS: O2SAT 96
[2017-08-18 19:04] LABS: BLOOD, URINE NEG (NEG); GLUCOSE,URINE NEG (NEG); KETONE, URINE NEG (NEG); NITRITE,URINE POS (NEG); PH, URINE 5.5 (5.0-8.5); URINE LEUKOCYTE ESTERASE NEG (NEG)
[2017-08-18 19:13] LABS: BILIRUBIN, URINE NEG (NEG)
[2017-08-18 19:19] LABS: URINE COLOR AMBER (YELLW/STRAW)
[2017-08-18 19:20] LABS: MUCUS URINE FEW /lpf (OCC); SQUAMOUS EPITHELIAL CELL URINE 0-5 /hpf (0-5); WHITE BLOOD CELL CLUMPS FEW
[2017-08-18 19:27] VITALS: BP 144/62; PULSE 60; RESP 18; O2SAT 97
--- NOTE | 2017-08-18 19:47 | PD ---
Physical Exam Time Seen by Provider: 19:[address] webster left this patient with me to check the results of the urine and make a disposition. Data Data Last Documented VS Vital Signs Date Time Temp Pulse Resp B/P (MAP) Pulse Ox O2 Delivery O2 Flow Rate FiO2 08/18/17 20:32 72 18 135/ 95 Nasal Cannula 08/18/17 19:27 2.00 08/18/17 17:25 97.5 Orders Orders Sepsis Workup Initiated (08/18/17 ) Electrocardiogram (08/18/17 17:38) Complete Blood Count With Diff (08/18/17 17:38) Comprehensive Metabolic Panel (08/18/17 17:38) Lactic Acid Sepsis Protocol (08/18/17 17:38) Urinalysis - C+S If Indicated (08/18/17 17:38) Influenzae A/B Antigen (08/18/17 17:38) Blood Culture (08/18/17 17:38) Chest, Single Ap (08/18/17 17:38) Ecg Monitoring (08/18/17 17:38) Iv Access Insert/Monitor (08/18/17 17:38) Cath For Specimen (08/18/17 17:38) Oximetry (08/18/17 17:38) Oxygen Administration (08/18/17 17:38) Sodium Chlor 0.9% 1000 Ml Inj (Ns 1000 M (08/18/17 17:38) Sodium Chlor 0.9% 1000 Ml Inj (Ns 1000 M (08/18/17 18:45) Urine Culture (08/18/17 18:39) Ct Brain W/O Iv Contrast(Rout) (08/18/17 19:34) Ns 1000ml Wide Open 2000 Ml/Hr (08/18/17 21:00) Labs Laboratory Tests Test 08/18/17 17:50 08/18/17 18:39 White Blood Count 4.4 TH/MM3 Red Blood Count 4.31 MIL/MM3 Hemoglobin 13.1 GM/DL Hematocrit 40.0 % Mean Corpuscular Volume 92.8 FL Mean Corpuscular Hemoglobin 30.3 PG Mean Corpuscular Hemoglobin Concent 32.7 % Red Cell Distribution Width 13.0 % Platelet Count 174 TH/MM3 Mean Platelet Volume 8.5 FL Neutrophils (%) (Auto) 59.6 % Lymphocytes (%) (Auto) 25.2 % Monocytes (%) (Auto) 9.7 % Eosinophils (%) (Auto) 2.3 % Basophils (%) (Auto) 3.2 % Neutrophils # (Auto) 2.7 TH/MM3 Lymphocytes # (Auto) 1.1 TH/MM3 Monocytes # (Auto) 0.4 TH/MM3 Eosinophils # (Auto) 0.1 TH/MM3 Basophils # (Auto) 0.1 TH/MM3 CBC Comment DIFF FINAL Differential Comment Blood Urea Nitrogen 21 MG/DL Creatinine 0.81 MG/DL Random Glucose 97 MG/DL Total Protein 6.2 GM/DL Albumin 2.8 GM/DL Calcium Level 8.3 MG/DL Alkaline Phosphatase 85 U/L Aspartate Amino Transf (AST/SGOT) 17 U/L Alanine Aminotransferase (ALT/SGPT) 19 U/L Total Bilirubin 0.4 MG/DL Sodium Level 141 MEQ/L Potassium Level 4.3 MEQ/L Chloride Level 108 MEQ/L Carbon Dioxide Level 28.8 MEQ/L Anion Gap 4 MEQ/L Estimat Glomerular Filtration Rate 67 ML/MIN Lactic Acid Level 0.6 mmol/L Urine Color MAY Urine Turbidity CLEAR Urine pH 5.5 Urine Specific [place] 1.025 Urine Protein NEG mg/dL Urine Glucose (UA) NEG mg/dL Urine Ketones NEG mg/dL Urine Occult Blood NEG Urine Nitrite POS Urine Bilirubin NEG Urine Leukocyte Esterase NEG Urine WBC 20-24 /hpf Urine WBC Clumps FEW Urine Squamous Epithelial Cells 0-5 /hpf Urine Mucus FEW /lpf Microscopic Urinalysis Comment CULTURE INDICATED MDM Medical Record Reviewed: Yes Supervised Visit with SKYLA: Yes Interpretation(s) The CT brain shows no acute infarct, hemorrhage or mass effect or extra-axial fluid collections. There is an old lacunar infarct involving the head of the left caudate nucleus and an old infarct involving the right parietal lobe. The CBC is normal. The urinalysis shows may color with positive nitrite and 20- 24 white cells with few white cell clumping's and culture is indicated. The complete metabolic profile shows a BUN of 21, GFR 67, total protein 6.2 with albumin 2.8 and calcium 8.3 but is otherwise unremarkable. The lactic acid is normal. The influenza a/B antigen is negative for flu a and flu B antigen. The EKG shows atrial fibrillation with a controlled rate of 61. Differential Diagnosis Ischemic CVA, electrolyte disorder, hypo-/hyperglycemia, urinary tract infection , renal insufficiency, intracranial bleed, altered mental status, dehydration Narrative Course The patient has altered mental status. At this time there is no evidence for ischemic CVA. She also has a urinary tract infection. The urinary tract infection may be the cause of the altered mental status. The son wants the patient admitted because he states that the speech is change and she is more lethargic than usual. The patient is on Xarelto for her chronic atrial fibrillation. The patient is also dehydrated. The dehydration may also be a cause of the slurred speech as well as altered mental status. Physician Communication Physician Communication I discussed the patient with Dr. Frost, the patient will be 23 hour observation to her. Diagnosis Primary Impression: Altered mental status Additional Impressions: UTI (urinary tract infection) Dehydration Admitting Information Admitting Physician Requests: Observation Bruce Nicolas MD Aug 18, 2017 19:47
--- NOTE | 2017-08-18 20:26 | RADRPT ---
EXAM DATE/TIME: 08/18/2017 19:56 [facility] COMPARISON: CT BRAIN W/O CONTRAST, August 03, 2014, 14:35. INDICATIONS : Altered mental status. Difficulty speaking. RADIATION DOSE: 59.69 CTDIvol (mGy) ; Patient motion MEDICAL HISTORY : Cardiovascular disease. Cerebrovascular disease. SURGICAL HISTORY : Carotid stent. Coronary artery stent. ENCOUNTER: Initial ACUITY: 1 day PAIN SCALE: 0/10 LOCATION: cranial TECHNIQUE: Multiple contiguous axial images were obtained of the head. Using automated exposure control and adj ustment of the mA and/or kV according to patient size, radiation dose was kept as low as reasonably a chievable to obtain optimal diagnostic quality images. DICOM format image data is available electro nically for review and comparison. FINDINGS: Old lacunar infarct is again noted within the region of the head of the left caudate nucleus. An old infarct is also again noted within the right parietal lobe and is unchanged. There is no acute hemorr mindy, acute infarct, midline shift or extra-axial fluid collections. The ventricles, sulci and cister ns are stable. CONCLUSION: 1. No acute infarct, acute hemorrhage, mass effect or extra-axial fluid collections. 2. 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 3. Old infarct involving the right parietal lobe. Ruben Simmons MD on August 18, 2017 at 20:21 Board Certified Radiologist. This report was verified electronically.
[2017-08-18 20:32] VITALS: BP 135/72; PULSE 72; RESP 18; O2SAT 95
[2017-08-18] MEDS ORDERED: BISACODYL 10 MG SUPP RECTAL PRN (21:00)
[2017-08-18] MEDS ORDERED: SODIUM CHLOR 0.9% 1000 ML INJ 1,000 ML IV SCH (21:00)
[2017-08-18] MEDS: SODIUM CHLORIDE 0.9% FLUSH 10 ML FLUSH IV FLUSH SCH (21:00)
[2017-08-18] MEDS ORDERED: cefTRIAXone INJ 1,000 MG in SODIUM CHLORIDE 0.9% INJ 100 ML IV ONE (21:00)
[2017-08-18] MEDS ORDERED: MAGNESIUM HYDROXIDE SUSP 30 ML CUP PO PRN (21:00)
[2017-08-18] MEDS ORDERED: ONDANSETRON HCL 4 MG/2 ML VIAL IVP PRN (21:00)
[2017-08-18] MEDS ORDERED: SODIUM CHLORIDE 0.9% FLUSH 10 ML FLUSH IV FLUSH PRN (21:00)
[2017-08-18] MEDS ORDERED: ACETAMINOPHEN/HYDROcodone 325 MG/10 MG TAB PO PRN (21:00)
[2017-08-18] MEDS ORDERED: LACTULOSE SYRUP 20 GM/30 ML CUP PO PRN (21:00)
[2017-08-18] MEDS ORDERED: ACETAMINOPHEN/HYDROcodone 325 MG/5 MG TAB PO PRN (21:00)
[2017-08-18] MEDS ORDERED: ACETAMINOPHEN 325 MG TAB PO PRN (21:00)
[2017-08-18] MEDS ORDERED: SENNOSIDES 8.6 MG TAB PO PRN (21:00)
[2017-08-18] MEDS: DOCUSATE SODIUM 50 MG/SENNA 8.6 MG TAB PO SCH (21:52)
[2017-08-18 22:26] VITALS: BP 135/73; PULSE 63; RESP 18; O2SAT 95
[2017-08-18 23:17] VITALS: BP 133/75
[2017-08-18] MEDS: cefTRIAXone INJ 1,000 MG in SODIUM CHLORIDE 0.9% INJ 100 ML IV SCH (23:58)
[2017-08-18] MEDS: SODIUM CHLOR 0.9% 1000 ML INJ 1,000 ML IV SCH (23:59)
[2017-08-19] VITALS: BP 144/63; PULSE 71; RESP 18; TEMP 97.8; O2SAT 97
[2017-08-19 06:40] LABS: AUTOMATED NEUTROPHIL # 2.5 TH/MM3 (1.8-7.7); BASOPHIL % 0.2 % (0.0-2.0); EOSINOPHIL # 0.1 TH/MM3 (0-0.4); EOSINOPHIL % 2.5 % (0.0-4.0); HEMATOCRIT 37.2 % (35.0-46.0); LYMPH % 26.5 % (9.0-44.0); LYMPHOCYTE # 1.1 TH/MM3 (1.0-4.8); MEAN CELL VOLUME 92.3 FL (80.0-100.0); MEAN CORPUSCULAR HEMOGLOBIN 29.7 PG (27.0-34.0); MEAN CORPUSCULAR HGB CONC 32.2 % (32.0-36.0); MEAN PLATELET VOLUME 9.1 FL (7.0-11.0); MONO % 10.8 % (0.0-8.0); MONOCYTE # 0.4 TH/MM3 (0-0.9); PLATELET COUNT 162 TH/MM3 (150-450); RED BLOOD COUNT 4.03 MIL/MM3 (4.00-5.30); RED CELL DISTRIBUTION WIDTH 12.9 % (11.6-17.2); WHITE BLOOD COUNT 4.1 TH/MM3 (4.0-11.0)
[2017-08-19 06:53] LABS: CHLORIDE 111 MEQ/L (98-107); SODIUM (NA) 143 MEQ/L (136-145)
[2017-08-19 06:57] LABS: CALCIUM 7.8 MG/DL (8.5-10.1)
[2017-08-19 06:58] LABS: ALBUMIN 2.7 GM/DL (3.4-5.0); BICARBONATE 25.6 MEQ/L (21.0-32.0); BLOOD UREA NITROGEN 13 MG/DL (7-18); GLUCOSE,RANDOM 75 MG/DL (74-106)
[2017-08-19 07:01] LABS: ALT (GPT) 17 U/L (10-53); AST (GOT) 16 U/L (15-37); CREATININE 0.62 MG/DL (0.50-1.00); GLOMERULAR FILTRATION RATE 91 ML/MIN (>89)
[2017-08-19 07:03] LABS: TOTAL BILIRUBIN ADULT 0.4 MG/DL (0.2-1.0); TOTAL PROTEIN 5.8 GM/DL (6.4-8.2)
[2017-08-19 07:04] LABS: ALKALINE PHOSPHATASE 71 U/L (45-117)
[2017-08-19 08:00] VITALS: BP 152/71; PULSE 87; RESP 21; TEMP 96; O2SAT 95
[2017-08-19] MEDS: SODIUM CHLORIDE 0.9% FLUSH 10 ML FLUSH IV FLUSH SCH ×2 (09:00→22:13)
[2017-08-19] MEDS: SODIUM CHLOR 0.9% 1000 ML INJ 1,000 ML IV SCH ×2 (09:34→22:57)
[2017-08-19] MEDS: DOCUSATE SODIUM 50 MG/SENNA 8.6 MG TAB PO SCH ×2 (09:36→22:13)
[2017-08-19 12:00] VITALS: BP_SYST 144; BP_SYST 149; BP_DIAS 69; BP_DIAS 87; PULSE 83; RESP 19; TEMP 97.3; O2SAT 94; O2SAT 96
--- NOTE | 2017-08-19 12:40 | HHI.HP ---
[facility] Service [facility] ([place], [place])ists Primary Care Physician Eboni Wilcox MD Admission Diagnosis altered mental status, urinary tract infection, dehydration, chronic Diagnoses: Chief Complaint: Altered mental status Travel History International Travel<30 Days: No Contact w/Intl Traveler <30 Da: No Traveled to Known Affected Are: No History of Present Illness This patient's 86-year-old female with a known history of atrial fibrillation. She was recently discharged from the rehabilitation facility had home for several days. She had some diarrhea for 2 days. This resolved however the patient says that she felt weak and lightheaded and she began slurring her speech. Her son brought her to the hospital. The patient says she recalls the events and was trying to speak clearly but her son could not understand her and brought her to the hospital. Patient appears dehydrated on admission examination by emergency room physician. At this time she has been hydrated her renal function is improved as well as her electrolytes. There has been no further diarrhea. Cardiac workup and neurological workup is unremarkable at this time. Review of Systems Constitutional: DENIES: Diaphoretic episodes, Fatigue, Fever, Weight gain, Weight loss, Chills, Dizziness, Change in appetite, Night Sweats Endocrine: DENIES: Abnorml menstrual pattern, Heat/cold intolerance, Polydipsia , Polyuria, Polyphagia Eyes: DENIES: Blurred vision, Diplopia, Eye inflammation, Eye pain, Vision loss , Photosensitivity, Double Vision Ears, nose, mouth, throat: DENIES: Tinnitus, Hearing loss, Vertigo, Nasal discharge, Oral lesions, Throat pain, Hoarseness, Ear Pain, Running Nose, Epistaxis, Sinus Pain, Toothache, Odynophagia Respiratory: DENIES: Apneas, Cough, Snoring, Wheezing, Hemoptysis, Sputum production, Shortness of breath Cardiovascular: DENIES: Chest pain, Palpitations, Syncope, Dyspnea on Exertion , PND, Lower Extremity Edema, Orthopnea, Claudication Gastrointestinal: COMPLAINS OF: Diarrhea, DENIES: Abdominal pain, Black stools , Bloody stools, Constipation, Nausea, Vomiting, Difficulty Swallowing, Anorexia Genitourinary: DENIES: Abnormal vaginal bleeding, Dysmenorrhea, Dyspareunia, Sexual dysfunction, Urinary frequency, Urinary incontinence, Urgency, Hematuria , Dysuria, Nocturia, Vaginal discharge Integumentary: DENIES: Abnormal pigmentation, Pruritus, Rash, Nail changes, Breast masses, Breast skin changes, Nipple discharge Hematologic/lymphatic: DENIES: Bruising, Lymphadenopathy Immunologic/allergic: DENIES: Eczema, Urticaria Neurologic: DENIES: Abnormal gait, Headache, Localized weakness, Paresthesias, Seizures, Speech Problems, Tremor, Poor Balance Psychiatric: COMPLAINS OF: Confusion, DENIES: Anxiety, Mood changes, Depression , Hallucinations, Agitation, Suicidal Ideation, Homicidal Ideation, Delusions Except as stated in HPI: all other systems reviewed are Neg Past Family Social History Past Medical History Atrial fibrillation Hypertension Hyperlipidemia History of strokes Anxiety Coronary artery disease Peripheral artery disease Past Surgical History Cardiac stenting Cataracts Femoral stent Reported Medications Reviewed in the EMR Allergies: Coded Allergies: oxytetracycline (Unverified Allergy, Severe, SWELLING/HIVES, 06/13/17) Active Ordered Medications Reviewed in the EMR Family History Patient does not know that Social History Lives with her son, recently discharged from the rehabilitation facility Physical Exam Vital Signs Vital Signs Date Time Temp Pulse Resp B/P (MAP) Pulse Ox O2 Delivery O2 Flow Rate FiO2 08/19/17 12:00 97.3 83 19 144/69 (94) 94 08/19/17 08:00 96.0 87 21 152/71 (98) 95 08/19/17 00:00 97.8 71 18 144/63 (90) 97 08/18/17 23:30 95 Nasal Cannula 2.00 08/18/17 23:17 75 18 133/75 (94) 95 2.00 08/18/17 22:26 63 18 135/73 (93) 95 Nasal Cannula 08/18/17 20:32 72 18 135/72 (93) 95 Nasal Cannula 08/18/17 19:27 60 18 144/62 (89) 97 Nasal Cannula 2.00 08/18/17 18:26 96 Nasal Cannula 2.00 08/18/17 18:26 96 Nasal Cannula 2.00 08/18/17 18:22 18 96 Nasal Cannula 2.00 08/18/17 17:25 97.5 65 16 113/59 (77) 91 Physical Exam GENERAL: This is a well-nourished, well-developed patient, in no apparent distress. SKIN: Pannus has erythema No rashes, ecchymoses or lesions. Cool and dry. HEAD: Atraumatic. Normocephalic. No temporal or scalp tenderness. EYES: Pupils equal round and reactive. Extraocular motions intact. No scleral icterus. No injection or drainage. ENT: Nose without bleeding, purulent drainage or septal hematoma. Throat without erythema, tonsillar hypertrophy or exudate. Uvula midline. Airway patent. NECK: Trachea midline. No JVD or lymphadenopathy. Supple, nontender, no meningeal signs. CARDIOVASCULAR: Atrial fibrillation, no murmurs or gallops appreciated Regular rate and rhythm without murmurs, gallops, or rubs. RESPIRATORY: Clear to auscultation. Breath sounds equal bilaterally. No wheezes , rales, or rhonchi. GASTROINTESTINAL: Abdomen soft, non-tender, nondistended. No hepato-splenomegaly , or palpable masses. No guarding. MUSCULOSKELETAL: Extremities without clubbing, cyanosis, or edema. No joint tenderness, effusion, or edema noted. No calf tenderness. Negative Homans sign bilaterally. NEUROLOGICAL: Awake and alert. Cranial nerves II through XII intact. Motor and sensory grossly within normal limits. Five out of 5 muscle strength in all muscle groups. Normal speech. Laboratory Laboratory Tests Test 08/18/17 17:50 08/18/17 18:39 08/19/17 04:35 White Blood Count 4.4 4.1 Red Blood Count 4.31 4.03 Hemoglobin 13.1 12.0 Hematocrit 40.0 37.2 Mean Corpuscular Volume 92.8 92.3 Mean Corpuscular Hemoglobin 30.3 29.7 Mean Corpuscular Hemoglobin Concent 32.7 32.2 Red Cell Distribution Width 13.0 12.9 Platelet Count 174 162 Mean Platelet Volume 8.5 9.1 Neutrophils (%) (Auto) 59.6 60.0 Lymphocytes (%) (Auto) 25.2 26.5 Monocytes (%) (Auto) 9.7 10.8 Eosinophils (%) (Auto) 2.3 2.5 Basophils (%) (Auto) 3.2 0.2 Neutrophils # (Auto) 2.7 2.5 Lymphocytes # (Auto) 1.1 1.1 Monocytes # (Auto) 0.4 0.4 Eosinophils # (Auto) 0.1 0.1 Basophils # (Auto) 0.1 0.0 CBC Comment DIFF FINAL DIFF FINAL Differential Comment Blood Urea Nitrogen 21 13 Creatinine 0.81 0.62 Random Glucose 97 75 Total Protein 6.2 5.8 Albumin 2.8 2.7 Calcium Level 8.3 7.8 Alkaline Phosphatase 85 71 Aspartate Amino Transf (AST/SGOT) 17 16 Alanine Aminotransferase (ALT/SGPT) 19 17 Total Bilirubin 0.4 0.4 Sodium Level 141 143 Potassium Level 4.3 3.8 Chloride Level 108 111 Carbon Dioxide Level 28.8 25.6 Anion Gap 4 6 Estimat Glomerular Filtration Rate 67 91 Lactic Acid Level 0.6 Urine Color ULISSES Urine Turbidity CLEAR Urine pH 5.5 Urine Specific [place] 1.025 Urine Protein NEG Urine Glucose (UA) NEG Urine Ketones NEG Urine Occult Blood NEG Urine Nitrite POS Urine Bilirubin NEG Urine Leukocyte Esterase NEG Urine WBC 20-24 Urine WBC Clumps FEW Urine Squamous Epithelial Cells 0-5 Urine Mucus FEW Microscopic Urinalysis Comment CULTURE INDICATED Date/Time Source Procedure Growth Status 08/18/17 17:55 Blood Peripheral Aerobic Blood Culture - Preliminary NO GROWTH IN 1 DAY Resulted 08/18/17 17:55 Blood Peripheral Anaerobic Blood Culture - Preliminary NO GROWTH IN 1 DAY Resulted 08/18/17 17:50 Nasal Washing Influenza Types A,B Antigen (ELLIE) - Final NEGATIVE FOR FLU A AND B ANTIGEN.... Complete 08/18/17 18:39 Urine Clean Catch Urine Culture Pending Received Result Diagram: 08/19/17 0435 08/19/17 0435 Imaging Last Impressions Head CT 08/18/17 1934 Signed Impressions: Service Date/Time: Friday, August 18, 2017 19:56 - CONCLUSION: 1. No acute infarct, acute hemorrhage, mass effect or extra-axial fluid collections. 2. 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 3. Old infarct involving the right parietal lobe. Ruben Simmons MD Chest X-Ray 08/18/17 8716 Signed Impressions: Service Date/Time: Friday, August 18, 2017 17:59 - CONCLUSION: No acute disease. Gutierrez Muniz MD Capvaleryi VTE Risk Assessment Caprini VTE Risk Assessment: Mod/High Risk (score >= 2) VTE Pharm Contraindication: Coagulopathy,INR elevated Caprini Risk Assessment Model Point Value = 1 Point Value = 2 Point Value = 3 Point Value = 5 Age 41-60 Minor surgery BMI > 25 kg/m2 Swollen legs Varicose veins or History of unexplained or recurrent spontaneous Oral contraceptives or hormone replacement Sepsis (< 1 month) Serious lung disease, including pneumonia (< 1 month) Abnormal pulmonary function Acute myocardial infarction Congestive heart failure (< 1 month) History of inflammatory bowel disease Medical patient at bed rest Age 61-74 Arthroscopic surgery Major open surgery (> 45 min) Laparoscopic surgery (> 45 min) Malignancy Confined to bed (> 72 hours) Immobilizing plaster cast Central venous access Age >= 75 History of VTE Family history of VTE Factor V Leiden Prothrombin [id number] Lupus anticoagulant Anticardiolipin antibodies Elevated serum homocysteine Heparin-induced thrombocytopenia Other congenital or acquired thrombophilia Stroke (< 1 month) Elective arthroplasty Hip, pelvis, or leg fracture Acute spinal cord injury (< 1 month) Prophylaxis Regimen Total Risk Factor Score Risk Level Prophylaxis Regimen 0-1 Low Early ambulation 2 Moderate Order ONE of the following: *Sequential Compression Device (SCD) *Heparin 5000 units SQ BID 3-4 Higher Order ONE of the following medications: *Heparin 5000 units SQ TID *Enoxaparin/Lovenox 40 mg SQ daily (WT < 150 kg, CrCl > 30 mL/min) *Enoxaparin/Lovenox 30 mg SQ daily (WT < 150 kg, CrCl > 10-29 mL/min) *Enoxaparin/Lovenox 30 mg SQ BID (WT < 150 kg, CrCl > 30 mL/min) AND/OR *Sequential Compression Device (SCD) 5 or more Highest Order ONE of the following medications: *Heparin 5000 units SQ TID (Preferred with Epidurals) *Enoxaparin/Lovenox 40 mg SQ daily (WT < 150 kg, CrCl > 30 mL/min) *Enoxaparin/Lovenox 30 mg SQ daily (WT < 150 kg, CrCl > 10-29 mL/min) *Enoxaparin/Lovenox 30 mg SQ BID (WT < 150 kg, CrCl > 30 mL/min) AND *Sequential Compression Device (SCD) Assessment and Plan Problem List: (1) Altered mental status ICD Code: R41.82 - Altered mental status, unspecified Status: Acute Plan: This patient's metabolic encephalopathy Appears to have resolved with treatment of urinary tract infection and IV hydration (2) Dehydration ICD Code: E86.0 - Dehydration Status: Acute Plan: Improved with IV hydration, continue oral intake (3) UTI (urinary tract infection) ICD Code: N39.0 - Urinary tract infection, site not specified Status: Acute (4) Afib ICD Code: I48.91 - Afib Status: Acute Plan: Controlled on current medications including Xarelto and Cardizem Assessment and Plan Likely discharge in Veronica Vera MD Aug 19, 2017 12:40
[2017-08-19 16:00] VITALS: BP 158/93; PULSE 89; RESP 22; TEMP 96.8; O2SAT 95
[2017-08-19] MEDS: NYSTATIN 100,000 U/GM PWD 15 GM BTL TOPICAL SCH ×2 (18:32→22:13)
[2017-08-19 20:00] VITALS: BP 158/88; PULSE 91; RESP 20; TEMP 97.3; O2SAT 93
[2017-08-19] MEDS: cefTRIAXone INJ 1,000 MG in SODIUM CHLORIDE 0.9% INJ 100 ML IV SCH (22:12)
[2017-08-19 23:54] VITALS: BP 150/82; PULSE 85; RESP 20; TEMP 96; O2SAT 98
--- NOTE | 2017-08-20 00:53 | EKG ---
Date Performed: 08/18/2017 Time Performed: 17:45:41 PTAGE: 86 years EKG: ATRIAL FIBRILLATION ABNORMAL RHYTHM ECG PREVIOUS TRACING : 06/13/2017 20.04 Since the prior tracing, there has been no significant segura DOCTOR: Geremias Sherwood Interpretating Date/Time 08/20/2017 00:51:40
[2017-08-20] MEDS: SODIUM CHLOR 0.9% 1000 ML INJ 1,000 ML IV SCH (03:00)
[2017-08-20 07:50] VITALS: BP 185/85; PULSE 113; RESP 20; TEMP 98.2; O2SAT 94
[2017-08-20] MEDS ORDERED: ALPRAZolam 0.5 MG TAB PO PRN (08:45)
[2017-08-20] MEDS: SODIUM CHLORIDE 0.9% FLUSH 10 ML FLUSH IV FLUSH SCH (08:56)
[2017-08-20] MEDS ORDERED: FLUoxetine HCL 20 MG CAP PO SCH (09:00)
[2017-08-20] MEDS: NYSTATIN 100,000 U/GM PWD 15 GM BTL TOPICAL SCH (09:00)
[2017-08-20] MEDS ORDERED: DILTIAZEM-CD 180 MG CAP ER PO SCH (09:00)
[2017-08-20] MEDS ORDERED: ATORVASTATIN 40 MG TAB PO SCH (09:00)
[2017-08-20] MEDS ORDERED: CARVEDILOL 12.5 MG TAB PO SCH (09:00)
[2017-08-20] MEDS ORDERED: GABAPENTIN 300 MG CAP PO SCH (09:00)
[2017-08-20] MEDS: DOCUSATE SODIUM 50 MG/SENNA 8.6 MG TAB PO SCH (09:45)
--- NOTE | 2017-08-20 10:05 | HHI.DCPOC ---
Discharge Care Plan Diagnosis: (1) Metabolic encephalopathy Goals to Promote Your Health * To prevent worsening of your condition and complications * To maintain your health at the optimal level Directions to Meet Your Goals Take your medications as prescribed Follow your dietary instruction Follow activity as directed Keep your appointments as scheduled Take your immunizations and boosters as scheduled If your symptoms worsen call your PCP, if no PCP go to Urgent Care Center or Emergency Room Smoking is Dangerous to Your Health. Avoid second hand smoke Call the 24-hour hour crisis hotline for domestic abuse at Veronica Valencia MD Aug 20, 2017 10:05
--- NOTE | 2017-08-20 10:09 | HHI.DS ---
Discharge Summary Admission Date Aug 18, 2017 at 21:02 Discharge Date: Aug 20, 2017 Admitting Diagnosis altered mental status, urinary tract infection, dehydration, chronic (1) Altered mental status ICD Code: R41.82 - Altered mental status, unspecified Status: Acute (2) Dehydration ICD Code: E86.0 - Dehydration Status: Acute (3) UTI (urinary tract infection) ICD Code: N39.0 - Urinary tract infection, site not specified Status: Acute (4) Afib ICD Code: I48.91 - Afib Status: Acute Procedures none Brief History - From Admission This patient's 86-year-old female with a known history of atrial fibrillation. She was recently discharged from the rehabilitation facility had home for several days. She had some diarrhea for 2 days. This resolved however the patient says that she felt weak and lightheaded and she began slurring her speech. Her son brought her to the hospital. The patient says she recalls the events and was trying to speak clearly but her son could not understand her and brought her to the hospital. Patient appears dehydrated on admission examination by emergency room physician. At this time she has been hydrated her renal function is improved as well as her electrolytes. There has been no further diarrhea. Cardiac workup and neurological workup is unremarkable at this time. CBC/BMP: 08/19/17 0435 08/19/17 0435 Significant Findings Laboratory Tests Test 08/18/17 17:50 08/18/17 18:39 08/19/17 04:35 Monocytes (%) (Auto) 9.7 % (0.0-8.0) 10.8 % (0.0-8.0) Basophils (%) (Auto) 3.2 % (0.0-2.0) Blood Urea Nitrogen 21 MG/DL (7-18) Total Protein 6.2 GM/DL (6.4-8.2) 5.8 GM/DL (6.4-8.2) Albumin 2.8 GM/DL (3.4-5.0) 2.7 GM/DL (3.4-5.0) Calcium Level 8.3 MG/DL (8.5-10.1) 7.8 MG/DL (8.5-10.1) Chloride Level 108 MEQ/L (98-107) 111 MEQ/L (98-107) Anion Gap 4 MEQ/L (5-15) Estimat Glomerular Filtration Rate 67 ML/MIN (>89) Urine Color ULISSES (YELLW/STRAW) Urine Nitrite POS (NEG) Urine WBC 20-24 /hpf (0-5) Urine WBC Clumps FEW (NONE) Urine Mucus FEW /lpf (OCC) Imaging Last Impressions Head CT 08/18/171933 Signed Impressions: Service Date/Time: Friday, August 18, 2017 19:56 - CONCLUSION: 1. No acute infarct, acute hemorrhage, mass effect or extra-axial fluid collections. 2. 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 3. Old infarct involving the right parietal lobe. Ruben Simmons MD Chest X-Ray 08/18/17 1738 Signed Impressions: Service Date/Time: Friday, August 18, 2017 17:59 - CONCLUSION: No acute disease. Gutierrez Muniz MD PE at Discharge GENERAL: This is a well-nourished, well-developed patient, in no apparent distress. CARDIOVASCULAR: Regular rate and rhythm without murmurs, gallops, or rubs. RESPIRATORY: Clear to auscultation. Breath sounds equal bilaterally. No wheezes , rales, or rhonchi. GASTROINTESTINAL: Abdomen soft, non-tender, nondistended. Normal active bowel sounds MUSCULOSKELETAL: Extremities without clubbing, cyanosis, or edema. NEURO: Alert & Oriented x4 to person, place, time, situation. Moves all ext x4 Pt update on day of discharge patient seen today follow up and dc planning no new medical events Urine cultures neg Hospital Course This patient's metabolic encephalopathy Appears to have resolved with treatment of urinary tract infection and IV hydration. She received IV abx. Dehydration was Improved with IV hydration, continue oral intake. Afib was controlled. Pt Condition on Discharge: Good Discharge Disposition: Discharge to SNF Discharge Time: <= 30 minutes Discharge Instructions DIET: Follow Instructions for: As Tolerated, No Restrictions Activities you can perform: Regular-No Restrictions Continued Medications: Alprazolam (Xanax) 1 Mg Tab 1 MG PO Q8H PRN for ANXIETY, TAB 0 Refills Atorvastatin (Atorvastatin) 40 Mg Tab 40 MG PO DAILY, #30 TAB Carvedilol (Carvedilol) 25 Mg Tab 25 MG PO BID, #60 TAB 0 Refills Cholecalciferol (Vitamin D3) 1,000 Unit Chew 1000 UNITS PO DAILY for Nutritional Supplement, #1 BOTTLE 0 Refills Diltiazem CD 24 HR (Cardizem CD 24 HR) 180 Mg Caper 180 MG PO DAILY, #30 CAP Fluoxetine (Fluoxetine) 20 Mg Capsule 20 MG PO BID, #30 CAP 0 Refills Gabapentin (Gabapentin) 300 Mg Cap 300 MG PO BID, #60 CAP 0 Refills Lisinopril (Lisinopril) 5 Mg Tab 5 MG PO DAILY, #30 TAB Rivaroxaban (Xarelto) 20 Mg Tab 20 MG PO DAILY@1600 for Blood Clot Prevention, #30 TAB 0 Refills Take daily with the evening meal Discontinued Medications: Ciprofloxacin (Ciprofloxacin) 500 Mg Tab 500 MG PO BID for Infection for 10 Days, #20 TAB 0 Refills Veronica Valencia MD Aug 20, 2017 10:09
[2017-08-20] MEDS ORDERED: XANA1TAB2 PO (10:10)
[2017-08-20] MEDS ORDERED: RIVAROXABAN 20 MG TAB PO SCH (16:00)
== END 2017-08-20 11:22 ==
LOC: PHED 17:21 → PHEDA 21:02 → PH3B 23:10
PROVIDERS: ADMIT Hospitalist; ATTEND Hospitalist
DX: R41.82 Altered mental status, unspecified (principal); E86.0 Dehydration; N39.0 Urinary tract infection, site not specified; G93.41 Metabolic encephalopathy; I25.10 Atherosclerotic heart disease of native coronary artery without angina pectoris; I73.9 Peripheral vascular disease, unspecified; E78.5 Hyperlipidemia, unspecified; I48.2 Chronic atrial fibrillation; I11.0 Hypertensive heart disease with heart failure; I50.9 Heart failure, unspecified; I69.354 Hemiplegia and hemiparesis following cerebral infarction affecting left non-dominant side; E78.00 Pure hypercholesterolemia, unspecified; R79.1 Abnormal coagulation profile; Z79.01 Long term (current) use of anticoagulants; Z95.5 Presence of coronary angioplasty implant and graft
CPT/HCPCS: 70450; 71045; 80053; 81001; 83605; 85025; 87040; 87086; 87804; 93005; 96361; 96365; 96366; 97162; 99285; G0378; G8987; G8988; J0696; J7030; P9612

== ENCOUNTER → 2017-09-22 | Outpatient (CLI) | payer MEDICARE, BC ==
[~2017-09-22] MED LIST changes: -CIPR500T2 PO
[2017-09-22 11:57] LABS: AUTOMATED NEUTROPHIL # 4.1 TH/MM3 (1.8-7.7); BASOPHIL % 0.8 % (0.0-2.0); EOSINOPHIL # 0.1 TH/MM3 (0-0.4); EOSINOPHIL % 2.2 % (0.0-4.0); HEMATOCRIT 38.6 % (35.0-46.0); HEMOGLOBIN 12.9 GM/DL (11.6-15.3); LYMPH % 14.2 % (9.0-44.0); LYMPHOCYTE # 0.8 TH/MM3 (1.0-4.8); MEAN CELL VOLUME 92.2 FL (80.0-100.0); MEAN CORPUSCULAR HEMOGLOBIN 30.7 PG (27.0-34.0); MEAN CORPUSCULAR HGB CONC 33.3 % (32.0-36.0); MEAN PLATELET VOLUME 8.8 FL (7.0-11.0); MONO % 12.2 % (0.0-8.0); MONOCYTE # 0.7 TH/MM3 (0-0.9); NEUT % 70.6 % (16.0-70.0); PLATELET COUNT 203 TH/MM3 (150-450); RED BLOOD COUNT 4.19 MIL/MM3 (4.00-5.30); RED CELL DISTRIBUTION WIDTH 14.6 % (11.6-17.2); WHITE BLOOD COUNT 5.8 TH/MM3 (4.0-11.0)
[2017-09-22 12:04] LABS: BACTERIA, URINE MOD /hpf; BILIRUBIN, URINE NEG (NEG); BLOOD, URINE TRACE (NEG); GLUCOSE,URINE NEG (NEG); KETONE, URINE NEG (NEG); MUCUS URINE FEW /lpf (OCC); NITRITE,URINE NEG (NEG); SQUAMOUS EPITHELIAL CELL URINE 8 /hpf (0-5); URINE COLOR YELLOW (YELLW/STRAW); URINE LEUKOCYTE ESTERASE LARGE (NEG)
[2017-09-22 12:20] LABS: ALBUMIN 3.2 GM/DL (3.4-5.0); AST (GOT) 17 U/L (15-37); BICARBONATE 30.1 MEQ/L (21.0-32.0); BLOOD UREA NITROGEN 15 MG/DL (7-18); CALCIUM 9.1 MG/DL (8.5-10.1); CHLORIDE 108 MEQ/L (98-107); CREATININE 1.08 MG/DL (0.50-1.00); GLOMERULAR FILTRATION RATE 48 ML/MIN (>89); SODIUM (NA) 144 MEQ/L (136-145); TRIGLYCERIDES 103 MG/DL (42-150)
[2017-09-22 12:36] LABS: ALKALINE PHOSPHATASE 100 U/L (45-117); ALT (GPT) 19 U/L (10-53); CHOLESTEROL 181 MG/DL (120-200); CHOLESTEROL/ HDL RATIO 3.51 RATIO; FREE T4 1.26 NG/DL (0.76-1.46); GLUCOSE,FASTING 98 MG/DL (74-99); HDL CHOLESTEROL 51.5 MG/DL (40.0-60.0); LDL CHOLESTEROL 109 MG/DL (0-99); TOTAL BILIRUBIN ADULT 0.7 MG/DL (0.2-1.0); TOTAL PROTEIN 6.7 GM/DL (6.4-8.2)
== END ==
LOC: PLAB 08:17
PROVIDERS: ATTEND Internal Medicine
DX: E78.5 Hyperlipidemia, unspecified (principal); N18.3 Chronic kidney disease, stage 3 (moderate); R53.83 Other fatigue
CPT/HCPCS: 36415; 80053; 80061; 81001; 82306; 83970; 84439; 84443; 85025

== ENCOUNTER 2017-10-16 15:55 | Emergency (ER) | payer MEDICARE, BC ==
[2017-10-16 16:15] VITALS: BP 143/82; PULSE 81; RESP 16; TEMP 98.5; O2SAT 93
[2017-10-16 16:25] VITALS: O2SAT 98
[2017-10-16] MEDS ORDERED: TRIA37.5 PO (16:28)
[2017-10-16] MEDS ORDERED: FLUD.1 PO (16:28)
[2017-10-16] MEDS ORDERED: WARF-20 PO (16:28)
--- NOTE | 2017-10-16 16:32 | PD ---
HPI Chief Complaint: General Weakness Time Seen by Provider: 16:05 Travel History International Travel<30 days: No Contact w/Intl Traveler<30days: No Traveled to known affect area: No History of Present Illness HPI 86-year-old female complains of generalized malaise, chest discomfort, abdominal discomfort, nausea, pain all over the body. Patient states that she has a history of fibromyalgia with chronic pain all over the body. Patient states that the pain is worse for the past several days. Patient states that she had chest discomfort today. Patient denies any coughing congestion fever chills. Patient states that she has abdominal discomfort with nausea today. Patient denies any vomiting or diarrhea. Patient denies any dysuria frequency. Patient states that she fell out of bed 2 days ago and landed on her buttock. Patient denies any headache. Patient denies any head injury. Patient denies any neck pain. Patient denies any shortness of breath. Patient denies any new focal weakness or numbness of the extremity. Patient has history of atrial fibrillation and on Coumadin. Past medical history including hypertension, hyperlipidemia, CVA, anxiety, CAD status post stent placement, peripheral vascular disease status post femoral stent placement. Patient was on diuretic in the past. Patient's human resource consultant Dr. Sahni took patient off diuretic recently. Patient was on hydrocodone for joint pain until recently. PFSH Past Medical History Hx Anticoagulant Therapy: Yes (Xarelto ) Arthritis: No Asthma: No Anxiety: Yes Depression: Yes Heart Rhythm Problems: Yes (A FIB) Cancer: No Cardiac Catheterization: Yes Cardiovascular Problems: Yes (A Fib) High Cholesterol: Yes Chemotherapy: No Chest Pain: No Congestive Heart Failure: No COPD: No Cerebrovascular Accident: Yes Coronary Artery Disease: Yes Diabetes: No Diminished Hearing: No Deep Vein Thrombosis: Yes Endocrine: No GERD: No Genitourinary: No Hepatitis: No Hiatal Hernia: No Hypertension: Yes Immune Disorder: No Kidney Stones: No Musculoskeletal: No Neurologic: No Psychiatric: No Reproductive: No Respiratory: Yes Migraines: Yes Radiation Therapy: No Renal Failure: No Seizures: No Sickle Cell Disease: No Sleep Apnea: No Thyroid Disease: Yes (NODULES ON THYROID) Ulcer: No Menopausal: Yes Past Surgical History Abdominal Surgery: No AICD: No Appendectomy: Yes Arteriovenous Shunt: No Cardiac Surgery: Yes (S TENTS IN CHEST AND ONE IN RT LEG , CAROTID STENT ) Coronary Stent: Yes Ear Surgery: No Endocrine Surgery: No Eye Surgery: Yes (CATARACT SURGERY) Genitourinary Surgery: No Gynecologic Surgery: Yes (REMOVERD CYCT FROM RT BREAST) Insulin Pump: No Joint Replacement: No Oral Surgery: No Pacemaker: Yes (STENTS) Thoracic Surgery: No Tonsillectomy: Yes Other Surgery: Yes (RT FEMORAL STENT) Social History Alcohol Use: No Tobacco Use: No Substance Use: No Allergies-Medications (Allergen,Severity, Reaction): Coded Allergies: oxytetracycline (Unverified Allergy, Severe, SWELLING/HIVES, 06/13/17) Reported Meds & Prescriptions Reported Meds & Active Scripts Active Xanax (Alprazolam) 1 Mg Tab 1 Mg PO Q8H PRN Cardizem CD 24 HR (Diltiazem CD 24 HR) 180 Mg Caper 180 Mg PO DAILY Atorvastatin (Atorvastatin Calcium) 40 Mg Tab 40 Mg PO DAILY Reported Triamterene-Hydrochlorothiazide 37.5-25 Mg Tab 1 Tab PO DAILY Fludrocortisone (Fludrocortisone Acetate) 0.1 Mg Tab 0.1 Mg PO DAILY Warfarin 4 Mg Tab 4 Mg PO DAILY Carvedilol 25 Mg Tab 25 Mg PO BID Fluoxetine (Fluoxetine HCl) 20 Mg Capsule 20 Mg PO BID Review of Systems General / Constitutional: No: Fever Eyes: No: Visual changes HENT: No: Headaches Cardiovascular: Positive: Chest Pain or Discomfort Respiratory: No: Shortness of Breath Gastrointestinal: Positive: Nausea, Abdominal Pain Genitourinary: No: Dysuria Musculoskeletal: No: Pain Skin: No Rash Neurologic: No: Weakness Psychiatric: No: Depression Endocrine: No: Polydipsia Hematologic/Lymphatic: No: Easy Bruising Physical Exam Narrative GENERAL: Well-nourished, well-developed patient. SKIN: Focused skin assessment warm/dry. HEAD: Normocephalic. EYES: No scleral icterus. No injection or drainage. Pupils 1.5 mm equal reactive. NECK: Supple, trachea midline. No JVD or lymphadenopathy. No neck tenderness on palpation. CARDIOVASCULAR: Regular rate and rhythm without murmurs, gallops, or rubs. RESPIRATORY: Breath sounds equal bilaterally. No accessory muscle use. GASTROINTESTINAL: Abdomen soft, non-tender, nondistended. MUSCULOSKELETAL: No cyanosis, or edema. BACK: Nontender without obvious deformity. No CVA tenderness. Neurologic exam: Patient is awake and alert oriented 3. Patient moves all extremity well. No obvious focal neurologic deficit. Data Data Last Documented VS Vital Signs Date Time Temp Pulse Resp B/P (MAP) Pulse Ox O2 Delivery O2 Flow Rate FiO2 10/16/17 16:25 98 Room Air 10/16/17 16:15 98.5 81 16 143/82 (102) Orders Orders Electrocardiogram (10/16/17 16:23) Complete Blood Count With Diff (10/16/17 16:23) Comprehensive Metabolic Panel (10/16/17 16:23) Creatine Kinase (Cpk) (10/16/17 16:23) Troponin I (10/16/17 16:23) B-Type Natriuretic Peptide (10/16/17 16:23) Prothrombin Time / Inr (Pt) (10/16/17 16:23) Act Partial Throm Time (Ptt) (10/16/17 16:23) Urinalysis - C+S If Indicated (10/16/17 16:23) Thyroid Stimulating Hormone (10/16/17 16:23) Chest, Single Ap (10/16/17 16:23) Ct Brain W/O Iv Contrast(Rout) (10/16/17 16:23) Pelvis, Ap Only (Routine) (10/16/17 16:23) Iv Access Insert/Monitor (10/16/17 16:23) Ecg Monitoring (10/16/17 16:23) Oximetry (10/16/17 16:23) Urine Culture (10/16/17 17:00) Labs Laboratory Tests Test 10/16/17 17:00 White Blood Count 8.4 TH/MM3 Red Blood Count 3.87 MIL/MM3 Hemoglobin 11.8 GM/DL Hematocrit 35.4 % Mean Corpuscular Volume 91.5 FL Mean Corpuscular Hemoglobin 30.5 PG Mean Corpuscular Hemoglobin Concent 33.3 % Red Cell Distribution Width 14.3 % Platelet Count 151 TH/MM3 Mean Platelet Volume 8.4 FL Neutrophils (%) (Auto) 77.0 % Lymphocytes (%) (Auto) 10.9 % Monocytes (%) (Auto) 9.4 % Eosinophils (%) (Auto) 1.1 % Basophils (%) (Auto) 1.6 % Neutrophils # (Auto) 6.5 TH/MM3 Lymphocytes # (Auto) 0.9 TH/MM3 Monocytes # (Auto) 0.8 TH/MM3 Eosinophils # (Auto) 0.1 TH/MM3 Basophils # (Auto) 0.1 TH/MM3 CBC Comment DIFF FINAL Differential Comment Prothrombin Time 11.4 SEC Prothromb Time International Ratio 1.1 RATIO Activated Partial Thromboplast Time 26.0 SEC Urine Color YELLOW Urine Turbidity CLEAR Urine pH 6.0 Urine Specific Harvey 1.015 Urine Protein TRACE mg/dL Urine Glucose (UA) NEG mg/dL Urine Ketones TRACE mg/dL Urine Occult Blood NEG Urine Nitrite NEG Urine Bilirubin NEG Urine Urobilinogen 0.2 MG/DL Urine Leukocyte Esterase NEG Urine RBC 0-3 /hpf Urine WBC 9-14 /hpf Urine WBC Clumps FEW Urine Squamous Epithelial Cells 0-5 /hpf Urine Renal Epithelial Cells 0-5 /hpf Microscopic Urinalysis Comment CULTURE INDICATED Blood Urea Nitrogen 13 MG/DL Creatinine 0.74 MG/DL Random Glucose 112 MG/DL Total Protein 6.5 GM/DL Albumin 2.9 GM/DL Calcium Level 8.4 MG/DL Alkaline Phosphatase 108 U/L Aspartate Amino Transf (AST/SGOT) 22 U/L Alanine Aminotransferase (ALT/SGPT) 23 U/L Total Bilirubin 0.7 MG/DL Sodium Level 139 MEQ/L Potassium Level 3.6 MEQ/L Chloride Level 106 MEQ/L Carbon Dioxide Level 26.6 MEQ/L Anion Gap 6 MEQ/L Estimat Glomerular Filtration Rate 74 ML/MIN Total Creatine Kinase 36 U/L Troponin I 0.02 NG/ML B-Type Natriuretic Peptide 363 PG/ML Thyroid Stimulating Hormone 3rd Gen 0.472 uIU/ML MDM Medical Decision Making Medical Screen Exam Complete: Yes Emergency Medical Condition: Yes Interpretation(s) Last Impressions Head CT 10/16/17 1623 Signed Impressions: Service Date/Time: September 16:43 - CONCLUSION: 1. Stable CT scan of the brain compared to the prior examination. 2. Stable old left basal ganglia infarct. 3. Stable old right mid parietal area infarct. Jose Armando Chan MD Chest x-ray shows no acute consolidation. Pelvis x-ray shows no acute fracture. 1759 PM. CBC within normal limits. CMP within normal limits. BNP 363. Differential Diagnosis Differential diagnosis including acute exacerbation of chronic pain, dehydration , electrolyte imbalance, head injury, UTI, sepsis. Narrative Course 86-year-old female with chest discomfort, abdominal discomfort, pain all over the body. Patient states that she fell out of bed 2 days ago. No head injury reported. Lortab 5, 1 tablet p.o. given now. Diagnosis Primary Impression: Arthralgia Qualified Codes: M25.50 - Pain in unspecified joint Additional Impression: Myalgia Patient Instructions: General Instructions Additional Instructions: Hydrocodone as needed for pain. Follow-up with personal physician. Follow-up with human resource consultant regarding diuretic for her CHF. Med/Other Pt SpecificInfo: Prescription(s) given Scripts Hydrocodone-Acetaminophen ([place]) 5 Mg-325 Mg Tab 1 TAB PO Q6H Y for PAIN, #20 TAB 0 Refills Prov: Bob Hawk MD 10/16/17 Disposition: 01 DISCHARGE HOME Condition: Stable Bob Hawk MD Oct 16, 2017 16:31
--- NOTE | 2017-10-16 16:53 | RADRPT ---
EXAM DATE/TIME: 10/16/2017 16:43 [facility] COMPARISON: CT BRAIN W/O CONTRAST, August 18, 2017, 19:56. INDICATIONS : Trauma. Fall. General weakness. RADIATION DOSE: 59.63 CTDIvol (mGy) MEDICAL HISTORY : Cerebrovascular disease. Deep venous thrombosis. Myocardial infarction.Hypertension. SURGICAL HISTORY : Coronary artery stent. Pacemaker.Appendectomy.Femoral stent. ENCOUNTER: Initial ACUITY: 2 days PAIN SCALE: 0/10 LOCATION: cranial TECHNIQUE: Multiple contiguous axial images were obtained of the head. Using automated exposure control and adj ustment of the mA and/or kV according to patient size, radiation dose was kept as low as reasonably a chievable to obtain optimal diagnostic quality images. DICOM format image data is available electro nically for review and comparison. FINDINGS: CEREBRUM: The ventricles are normal for age. There is stable bilateral cortical atrophy. No evidence of midline shift, mass lesion, hemorrhage or acute infarction. No extra-axial fluid collections are seen. The old infarct in the left basal ganglia. There is an old infarct in the right mid parietal area. No robert nge compared to the prior study. POSTERIOR FOSSA: The cerebellum and brainstem are intact. The 4th ventricle is midline. The cerebellopontine angle i s unremarkable. EXTRACRANIAL: The visualized portion of the orbits is intact. SKULL: The calvaria is intact. No evidence of skull fracture. No significant change compared to prior study CONCLUSION: 1. Stable CT scan of the brain compared to the prior examination. 2. Stable old left basal ganglia infarct. 3. Stable old right mid parietal area infarct. Jose Armando Chna MD on October 16, 2017 at 16:50 Board Certified Radiologist. This report was verified electronically.
--- NOTE | 2017-10-16 16:55 | RADRPT ---
EXAM DATE/TIME: 10/16/2017 16:32 [facility] COMPARISON: CHEST SINGLE AP, August 18, 2017, 17:59. INDICATIONS : Chest dicomfort; fall today per patient. MEDICAL HISTORY : Hypertension. Myocardial infarction. Stroke. Afib. DVT. SURGICAL HISTORY : Pacemaker. Cardiac cath. Coronary stent. ENCOUNTER: Initial ACUITY: 1 day PAIN SCORE: 0/10 LOCATION: Bilateral chest FINDINGS: A single view of the chest demonstrates the lungs to be symmetrically aerated without evidence of mas s, infiltrate or effusion. Hyperaeration bilaterally. Chronic interstitial changes bilaterally. The cardiomediastinal contours are unremarkable and stable. Osseous structures are intact and stable. CONCLUSION: No acute disease. No significant change has occurred. Jose Armando Chan MD on October 16, 2017 at 16:52 Board Certified Radiologist. This report was verified electronically.
--- NOTE | 2017-10-16 16:57 | RADRPT ---
EXAM DATE/TIME: 10/16/2017 16:32 [facility] COMPARISON: No previous studies available for comparison. INDICATIONS : Pelvic discomfort; fall today per patient. MEDICAL HISTORY : None. SURGICAL HISTORY : None. ENCOUNTER: Initial ACUITY: 1 day PAIN SCORE: 3/10 LOCATION: Bilateral pelvis FINDINGS: A single frontal view of the pelvis demonstrates no evidence of fracture. The bony pelvic ring is in tact. Bony mineralization is normal. The soft tissues are intact. There is good alignment at both h ip joints. CONCLUSION: No acute fracture or joint dislocation. Jose Armando Chan MD on October 16, 2017 at 16:55 Board Certified Radiologist. This report was verified electronically.
[2017-10-16 17:09] LABS: AUTOMATED NEUTROPHIL # 6.5 TH/MM3 (1.8-7.7); BASOPHIL # 0.1 TH/MM3 (0-0.2); BASOPHIL % 1.6 % (0.0-2.0); EOSINOPHIL # 0.1 TH/MM3 (0-0.4); EOSINOPHIL % 1.1 % (0.0-4.0); HEMATOCRIT 35.4 % (35.0-46.0); HEMOGLOBIN 11.8 GM/DL (11.6-15.3); LYMPH % 10.9 % (9.0-44.0); LYMPHOCYTE # 0.9 TH/MM3 (1.0-4.8); MEAN CELL VOLUME 91.5 FL (80.0-100.0); MEAN CORPUSCULAR HEMOGLOBIN 30.5 PG (27.0-34.0); MEAN CORPUSCULAR HGB CONC 33.3 % (32.0-36.0); MEAN PLATELET VOLUME 8.4 FL (7.0-11.0); MONO % 9.4 % (0.0-8.0); MONOCYTE # 0.8 TH/MM3 (0-0.9); PLATELET COUNT 151 TH/MM3 (150-450); RED BLOOD COUNT 3.87 MIL/MM3 (4.00-5.30); RED CELL DISTRIBUTION WIDTH 14.3 % (11.6-17.2); WHITE BLOOD COUNT 8.4 TH/MM3 (4.0-11.0)
[2017-10-16 17:17] LABS: CHLORIDE 106 MEQ/L (98-107); SODIUM (NA) 139 MEQ/L (136-145)
[2017-10-16 17:20] LABS: CALCIUM 8.4 MG/DL (8.5-10.1)
[2017-10-16 17:21] LABS: ALBUMIN 2.9 GM/DL (3.4-5.0); BICARBONATE 26.6 MEQ/L (21.0-32.0); BLOOD UREA NITROGEN 13 MG/DL (7-18); GLUCOSE,RANDOM 112 MG/DL (74-106)
[2017-10-16 17:23] LABS: BILIRUBIN, URINE NEG (NEG); BLOOD, URINE NEG (NEG); GLUCOSE,URINE NEG (NEG); INTERNATIONAL NORMALIZED RATIO 1.1 RATIO; KETONE, URINE TRACE mg/dL (NEG); NITRITE,URINE NEG (NEG); PROTHROMBIN TIME - PATIENT 11.4 SEC (9.8-11.6); URINE COLOR YELLOW (YELLW/STRAW); URINE LEUKOCYTE ESTERASE NEG (NEG)
[2017-10-16 17:24] LABS: ALT (GPT) 23 U/L (10-53); AST (GOT) 22 U/L (15-37); CREATININE 0.74 MG/DL (0.50-1.00); GLOMERULAR FILTRATION RATE 74 ML/MIN (>89)
[2017-10-16 17:26] LABS: TOTAL BILIRUBIN ADULT 0.7 MG/DL (0.2-1.0); TOTAL PROTEIN 6.5 GM/DL (6.4-8.2)
[2017-10-16 17:27] LABS: ALKALINE PHOSPHATASE 108 U/L (45-117)
[2017-10-16 17:29] LABS: TROPONIN I 0.02 NG/ML (0.02-0.05)
[2017-10-16 17:34] LABS: RBC, URINE 0-3 /hpf (0-3); RENAL EPITHELIAL CELLS 0-5 /hpf; SQUAMOUS EPITHELIAL CELL URINE 0-5 /hpf (0-5); WHITE BLOOD CELL CLUMPS FEW
[2017-10-16 18:05] VITALS: BP 153/67; PULSE 103; RESP 16; O2SAT 97
[2017-10-16] MEDS ORDERED: NORC5TAB PO (18:08)
[2017-10-16] MEDS ORDERED: ACETAMINOPHEN/HYDROcodone 325 MG/5 MG TAB PO ONE (18:30)
--- NOTE | 2017-10-17 10:35 | EKG ---
Date Performed: 10/16/2017 Time Performed: 17:05:07 PTAGE: 86 years EKG: ATRIAL FIBRILLATION SEPTAL MYOCARDIAL INFARCTION ABNORMAL ECG PREVIOUS TRACING : 08/18/2017 17.45 Compared to the prior study, the rate is faster. Minor nons pecific ST segment changes are noted. DOCTOR: Robert Kong Interpretating Date/Time 10/17/2017 10:34:54
== END 2017-10-16 19:06 | disposition home or self-care (01) ==
LOC: PHED 15:55
DX: M25.50 Pain in unspecified joint (principal); R11.0 Nausea; G89.29 Other chronic pain; M79.7 Fibromyalgia; E78.00 Pure hypercholesterolemia, unspecified; I10 Essential (primary) hypertension; I25.10 Atherosclerotic heart disease of native coronary artery without angina pectoris; I48.91 Unspecified atrial fibrillation; Z79.01 Long term (current) use of anticoagulants
CPT/HCPCS: 70450; 71045; 72170; 80053; 81001; 82550; 83880; 84443; 84484; 85025; 85610; 85730; 87086; 93005; 99285

== ENCOUNTER → 2017-11-11 | Outpatient (CLI) | payer MEDICARE, BC ==
[~2017-11-11] MED LIST changes: -CHOL100025 PO; +FLUD.1 PO; -GABA300C5 PO; -LISI-519 PO; +NORC5TAB PO; +TRIA37.5 PO; +WARF-20 PO; -XARE20TA PO
[2017-11-11 14:15] LABS: AUTOMATED NEUTROPHIL # 3.2 TH/MM3 (1.8-7.7); BASOPHIL % 0.9 % (0.0-2.0); EOSINOPHIL # 0.2 TH/MM3 (0-0.4); EOSINOPHIL % 3.2 % (0.0-4.0); HEMATOCRIT 41.1 % (35.0-46.0); HEMOGLOBIN 13.5 GM/DL (11.6-15.3); LYMPH % 19.1 % (9.0-44.0); LYMPHOCYTE # 0.9 TH/MM3 (1.0-4.8); MEAN CELL VOLUME 93.2 FL (80.0-100.0); MEAN CORPUSCULAR HEMOGLOBIN 30.6 PG (27.0-34.0); MEAN CORPUSCULAR HGB CONC 32.8 % (32.0-36.0); MEAN PLATELET VOLUME 9.1 FL (7.0-11.0); MONO % 8.5 % (0.0-8.0); MONOCYTE # 0.4 TH/MM3 (0-0.9); NEUT % 68.3 % (16.0-70.0); PLATELET COUNT 194 TH/MM3 (150-450); RED BLOOD COUNT 4.41 MIL/MM3 (4.00-5.30); RED CELL DISTRIBUTION WIDTH 14.7 % (11.6-17.2); WHITE BLOOD COUNT 4.8 TH/MM3 (4.0-11.0)
[2017-11-11 14:20] LABS: BICARBONATE 28.2 MEQ/L (21.0-32.0); CALCIUM 9.3 MG/DL (8.5-10.1)
[2017-11-11 14:29] LABS: CHOLESTEROL/ HDL RATIO 3.61 RATIO; HDL CHOLESTEROL 48.7 MG/DL (40.0-60.0)
== END ==
LOC: PLAB 08:28
PROVIDERS: ATTEND Internal Medicine Interventional Cardiology
DX: Z79.899 Other long term (current) drug therapy (principal)
CPT/HCPCS: 36415; 80048; 80061; 84443; 84450; 84460; 85025

== ENCOUNTER → 2018-01-06 | Outpatient (CLI) | payer MEDICARE, BC ==
[2018-01-06 13:34] LABS: INTERNATIONAL NORMALIZED RATIO 1.2 RATIO; PROTHROMBIN TIME - PATIENT 12.1 SEC (9.8-11.6)
[2018-01-06 14:13] LABS: FREE T4 1.22 NG/DL (0.76-1.46)
== END ==
LOC: PLAB 10:23
PROVIDERS: ATTEND Internal Medicine
DX: I48.2 Chronic atrial fibrillation (principal); E03.9 Hypothyroidism, unspecified; E55.9 Vitamin D deficiency, unspecified
CPT/HCPCS: 36415; 82306; 84439; 84443; 85610